=== PATIENT | female | born 1950 | race Caucasian/White ===

== ENCOUNTER 2018-08-05 13:31 | Outpatient (REF) | payer MEDICARE, SELFPAY ==
[2018-08-05 14:39] LABS: Anion Gap 12.7 mmol/L (3-11); BUN 12 mg/dL (7-18); CO2 23.3 mmol/L (21.0-32.0); CREATININE 0.67 mg/dL (0.55-1.02); Calcium 9.5 mg/dL (8.5-10.1); Chloride 107 mmol/L (98-107); Glucose 99 mg/dL (70-100); Sodium 143 mmol/L (136-145)
[2018-08-06 10:35] LABS: Hepatitis C Ab w Rflx HCV PCR Negative (NEGAT)
== END 2018-08-05 13:51 ==
LOC: NCHCN 13:31
PROVIDERS: PCP Family Medicine; Visit Provider Family Medicine
DX: I10 Essential (primary) hypertension (principal); R73.09 Other abnormal glucose; Z11.59 Encounter for screening for other viral diseases
CPT/HCPCS: 80048; 86803

== ENCOUNTER 2018-09-09 00:59 | Outpatient (CLI) | payer MEDICARE, SELFPAY ==
--- NOTE | 2018-09-09 09:16 | DI.MAMMO_ITS ---
SYMPTOMS/DIAGNOSIS: BREAST CA SCREENING, Z12.31, [facility], Z00.00 MAMMOGRAMS: Mammograms were interpreted according to the usual protocol including computer analysis with CAD system, tomosynthesis and C view imaging. Comparison is with the prior examinations. No masses or microcalcifications are seen. There is nothing to suggest malignancy. IMPRESSION: Negative mammogram. Routine screening is recommended. Category 1 , breast density B. SA ASSESSMENT OF FINDINGS: Negative. Category 1. Patient will receive a letter notifying them of these results. BI-RADS category B. There are scattered areas of fibroglandular density.
== END 2018-09-09 01:19 ==
PROVIDERS: PCP Family Medicine; Visit Provider Family Medicine
DX: Z12.31 Encounter for screening mammogram for malignant neoplasm of breast (principal)
CPT/HCPCS: 77063; 77067

== ENCOUNTER 2019-04-30 10:54 | Emergency (ER) | payer MEDICARE, SELFPAY ==
[2019-04-30 11:01] VITALS: BP 150/79; PULSE 98; RESP 16; TEMP 36.6; O2SAT 98
--- NOTE | 2019-04-30 11:06 | DI.RAD_ITS ---
SYMPTOMS/DIAGNOSIS: NOTABLE SWELLING OF LT WRIST AFTER FALL, ? FRACTURE, STERNAL CHEST PAIN LEFT WRIST: A comminuted displaced intra-articular fracture of the distal radius and ulnar styloid is demonstrated. PA AND LATERAL CHEST: There is no evidence of a pneumothorax or pleural effusion. The cardiovascular structures appear intact. SUMMARY: No evidence of acute cardiopulmonary disease.
--- NOTE | 2019-04-30 11:08 | W.ED.GENAD ---
Discharge Plan Disposition Patient Disposition: HOME Discharge Details Chief Complaint: Orthopedic Clinical Impression: Distal radial fracture, Closed fracture of radial styloid Primary Care Provider: Sinan Valles ED Provider: Moe Mchugh Home Meds and New Rx's Prescriptions: No Action losartan 50 mg tablet 50 mg PO DAILY RF: 0 amlodipine-benazepril 5-10 mg capsule 1 cap PO DAILY RF: 0 amoxicillin 500 mg capsule 500 mg PO QID RF: 0 One-A-Day Women's 50 Plus 400-20 mcg tablet PO DAILY RF: 0 black cohosh 20 mg tablet 20 mg PO BID RF: 0 Ca cmb no.1-vit Y6-I0-HX-B12 120-1,000-10 mg-unit-mg tablet PO RF: 0 flaxseed oil 1,000 mg capsule 1,000 mg PO TID RF: 0 Discharge Instructions Instructions: Wrist Fracture in Adults (ED) Additional Instructions: You have fractured the end of your radius. Take Tylenol and Motrin as needed for pain. Please keep the splint on at all times. You will be contacted by Dr. Conway's office for close follow-up. If you notice any change in color in your fingertips, change in temperature, worsening pain, loosen up the cast immediately and return for evaluation. If you notice any worsening of your symptoms, or any new symptoms such as vomiting, diarrhea, fever, chills, shortness of breath, chest pain, numbness, weakness, or fainting , please return immediately to the emergency department for reevaluation. Please follow up with your primary care provider as soon as possible for reassessment and reevaluation. As always, it was a pleasure participating in your medical care today. Referrals: Carl Conway MD [ [facility] STAFF PHYSICIAN] - Medical Decision Making This is a 68-year-old female who presents today after fall. Roughly an hour ago she fell caught herself with her left hand outstretched. She has mild deformity of the left lateral wrist, but also some swelling over the medial component as well. Concern for radial or ulnar fracture. She does have minimal chest wall tenderness, no evidence of significant vital sign abnormality, with no signs of shortness of breath, hypoxemia, or other significant abnormality. I feel the signs and symptoms are consistent with a trauma and orthopedic irritation. We will get an x-ray to rule out fracture. 1:07 PM X-ray results show evidence of comminuted intra-articular fracture of the distal radius. Questionable styloid process fracture on the distal ulna. No evidence of acute process in the chest. We did discuss the case with Dr. Conway., He does recommend close follow-up. We did give an intra-articular block, reduction was achieved, splint was placed. Post splint evaluation demonstrates brisk capillary refill, normal sensation normal movement of the hand and fingers. I have extensively reviewed the treatment plan and discharge instructions with the patient. I have addressed all patient concerns at this time. The patient was made aware of what symptoms to monitor for that would warrant a return to the emergency department. Discussed the plan with the patient, they demonstrate verbal understanding and agreement with our assessment and plan at this time. EKG 11: 11 Rate 94, sinus rhythm, intervals normal, no significant ST elevations or depressions, no significant T wave inversions. Questionable small Q waves in lead III. 15 cc of a 50-50 mixture of 1% lidocaine and 0.5% bupivacaine was placed intra-articularly for hematoma block. The area was then reduced with gentle traction. Patient tolerated this well. No bleeding. Repeat exam post reduction demonstrates normal sensation and movement of the fingers. Normal capillary refill. HPI General Date/Time Provider Initiated Documentation: 04/30/19 10:55. HPI Narrative: This is a 68-year-old female with past medical history of mild hypertension, but no history of cardiac disease, or other complaints who presents today for evaluation of left wrist pain after fall. The patient states that roughly an hour or so ago she was walking, had a mechanical trip and fell trying to catch herself with her left outstretched hand. She landed on the hand causing notable pain tenderness at the lateral aspect of the wrist. She is not on any blood thinners. She did not strike her head. Her chest also hit the ground, and immediately after the fall she did have a mild amount of sternal chest pain. Worse with movement and palpation. She denies any pain anywhere else. She denies any other modifying factors. She denies any numbness, tingling, weakness, headache, shortness of breath, fever, chills, nausea vomiting or diarrhea. Related Data Home Medications Medication Instructions Recorded Confirmed amlodipine 5 mg-benazepril 10 mg 1 cap PO DAILY 04/29/19 04/30/19 capsule amoxicillin 500 mg capsule 500 mg PO QID 04/29/19 04/30/19 black cohosh 20 mg tablet 20 mg PO BID tab 04/29/19 04/30/19 calcium cmb no.1-vit W1-F4-LZ-B12 tab PO tab 04/29/19 04/29/19 120 mg-1,000 unit-10 mg tablet flaxseed oil 1,000 mg capsule 1,000 mg PO TID 04/29/19 04/30/19 losartan 50 mg tablet 50 mg PO DAILY 04/29/19 04/30/19 nnapavadhndi-tjtcqdlr-bccynrh-folic tab PO DAILY tab 04/29/19 04/29/19 acid 400 mcg-vit K1 20 mcg tablet Allergies Allergy/AdvReac Type Severity Reaction Status Date / Time penicillin G Allergy Severe hives Verified 04/30/19 11:06 adhesive tape Allergy Intermediate rash Verified 04/30/19 11:06 General Stated Complaint: Orthopedic SHOAIB: 4 Review of Systems Review of Systems All systems reviewed & are unremarkable except as noted in HPI and below Exam Narrative Exam Narrative: 1.Const: Well-nourished, Well-developed, appearing stated age 2.Eyes: PERRL, no conjunctival injection, and symmetrical lids. 3.ENT: Atraumatic external nose and ears. Moist MM. Neck: Symmetric, trachea midline, No thyromegaly. There is no evidence of raccoon eyes, antonio sign, CSF rhinorrhea, mastoid tenderness, cranial crepitus, hemotympanum, exophthalmos, or hyphema. Patient demonstrates intact dentition with no signs of tooth avulsion or fracture, no signs of jaw deformity, no evidence of a LeFort's fracture, with an intact palate, nose and orbital region. There is no evidence of a nasal septal hematoma. No proptosis. Jaw closes symmetrically. Airway is clear. 4.CVS: Regular rate and rhythm, Normal s1 and s2. No murmurs, carotid bruits, rubs, or gallops. Radial pulses 2+ bilaterally and symmetric. Dorsalis pedis pulses 2+ bilaterally and symmetric. 2+ capillary refill. No evidence of distant heart sounds. No extremity edema. No evidence of gross hemorrhage. 5.RESP: Airway clear, no obstructions. No abrasions or ecchymosis. Chest movement symmetric with respirations. Minimal reproducible chest wall tenderness over the lower sternum. No tenderness over the xiphoid process.. Trachea midline. No crepitus. No step offs. No paradoxical movements. Lungs are clear to auscultation bilaterally. No rales, rhonchi, wheezing or stridor. Breath sound symmetric. No Sucking chest wounds. No clinical evidence of significant chest trauma. 6.GI: Soft, Nontender/Nondistended, No hepatosplenomegaly. No guarding or rebound. 7.MSK: Normocephalic. Right upper extremity unremarkable. Left upper extremity demonstrates notable tenderness, swelling and mild deformity of the left lateral wrist. Radial pulse intact bilaterally. Symmetrically palpable radial and ulnar pulses. Capillary refill less than 2 seconds to all digits. Intact sensation to light touch of the radial, median and ulnar nerves demonstrated by testing in the dorsal web space of the thumb, the distal palmar aspect of the index finger, and the lateral surface of the fifth finger. 2 point discrimination intact to 5mm (up to 6mm can be normal in digits 3-5) of discrimination in the affected digit. Intact motor function of the radial, median and ulnar nerves demonstrated by strength of extension of the isolated distal joint of the index finger, hand stock feeder, and spreading of the 2nd through 5th digits. Video Games Storywriter certainly makes pain in the wrist worse peer intact recurrent median nerve as demonstrated by ability to move thumb fully through opposition, abduction and flexion. No snuffbox tenderness. 8.Skin: Warm, Dry. No rashes or lesions. 9.Neuro: pantograph machine set up operator II-XII grossly intact. Sensation grossly intact, no focal neurologic deficits. 10.Psych: (AAO) x3. Appropriate mood and affect Course Vital Signs Temperature 36.6 C 04/30/19 11:01 Pulse 98 H 04/30/19 11:01 Respiratory Rate 16 04/30/19 11:01 Blood Pressure 150/79 H 04/30/19 11:01 Pulse Oximetry 98 04/30/19 11:01 Temperature 36.6 C 04/30/19 11:01 Temperature Source Skin 04/30/19 11:01 Pulse 98 H 04/30/19 11:01 Respiratory Rate 16 04/30/19 11:01 Respiratory Effort Non-Labored 04/30/19 11:01 Blood Pressure 150/79 H 04/30/19 11:01 Blood Pressure Position Sitting 04/30/19 11:01 Pulse Oximetry 98 04/30/19 11:01 Oxygen Delivery Method Room Air 04/30/19 11:01 Oxygen Flow Rate 0 04/30/19 11:01 Pain Level 7 04/30/19 11:01
--- NOTE | 2019-04-30 11:14 | ED.GENADUL_ITS ---
Discharge Plan Disposition Patient Disposition: HOME Discharge Details Chief Complaint: Orthopedic Clinical Impression: Distal radial fracture, Closed fracture of radial styloid Primary Care Provider: Sinan Valles ED Provider: Moe Mchugh Home Meds and New Rx's Prescriptions: No Action losartan 50 mg tablet 50 mg PO DAILY RF: 0 amlodipine-benazepril 5-10 mg capsule 1 cap PO DAILY RF: 0 amoxicillin 500 mg capsule 500 mg PO QID RF: 0 One-A-Day Women's 50 Plus 400-20 mcg tablet PO DAILY RF: 0 black cohosh 20 mg tablet 20 mg PO BID RF: 0 Ca cmb no.1-vit A0-K5-OP-B12 120-1,000-10 mg-unit-mg tablet PO RF: 0 flaxseed oil 1,000 mg capsule 1,000 mg PO TID RF: 0 Discharge Instructions Instructions: Wrist Fracture in Adults (ED) Additional Instructions: You have fractured the end of your radius. Take Tylenol and Motrin as needed for pain. Please keep the splint on at all times. You will be contacted by Dr. Conway's office for close follow-up. If you notice any change in color in your fingertips, change in temperature, worsening pain, loosen up the cast immediately and return for evaluation. If you notice any worsening of your symptoms, or any new symptoms such as vomiting, diarrhea, fever, chills, shortness of breath, chest pain, numbness, weakness, or fainting , please return immediately to the emergency department for reevaluation. Please follow up with your primary care provider as soon as possible for reassessment and reevaluation. As always, it was a pleasure participating in your medical care today. Referrals: Carl Conway MD [ [facility] STAFF PHYSICIAN] - Medical Decision Making This is a 68-year-old female who presents today after fall. Roughly an hour ago she fell caught herself with her left hand outstretched. She has mild deformity of the left lateral wrist, but also some swelling over the medial component as well. Concern for radial or ulnar fracture. She does have minimal chest wall tenderness, no evidence of significant vital sign abnormality, with no signs of shortness of breath, hypoxemia, or other significant abnormality. I feel the signs and symptoms are consistent with a trauma and orthopedic irritation. We will get an x-ray to rule out fracture. 1:07 PM X-ray results show evidence of comminuted intra-articular fracture of the distal radius. Questionable styloid process fracture on the distal ulna. No evidence of acute process in the chest. We did discuss the case with Dr. Conway., He does recommend close follow-up. We did give an intra-articular block, reduction was achieved, splint was placed. Post splint evaluation demonstrates brisk capillary refill, normal sensation normal movement of the hand and fingers. I have extensively reviewed the treatment plan and discharge instructions with the patient. I have addressed all patient concerns at this time. The patient was made aware of what symptoms to monitor for that would warrant a return to the emergency department. Discussed the plan with the patient, they demonstrate verbal understanding and agreement with our assessment and plan at this time. EKG 11: 11 Rate 94, sinus rhythm, intervals normal, no significant ST elevations or depressions, no significant T wave inversions. Questionable small Q waves in lead III. 15 cc of a 50-50 mixture of 1% lidocaine and 0.5% bupivacaine was placed intra- articularly for hematoma block. The area was then reduced with gentle traction. Patient tolerated this well. No bleeding. Repeat exam post reduction demonstrates normal sensation and movement of the fingers. Normal capillary refill. HPI General Date/Time Provider Initiated Documentation: 04/30/19 10:55 . HPI Narrative: This is a 68-year-old female with past medical history of mild hypertension, but no history of cardiac disease, or other complaints who presents today for evaluation of left wrist pain after fall. The patient states that roughly an hour or so ago she was walking, had a mechanical trip and fell trying to catch herself with her left outstretched hand. She landed on the hand causing notable pain tenderness at the lateral aspect of the wrist. She is not on any blood thinners. She did not strike her head. Her chest also hit the ground, and immediately after the fall she did have a mild amount of sternal chest pain. Worse with movement and palpation. She denies any pain anywhere else. She denies any other modifying factors. She denies any numbness, tingling, weakness, headache, shortness of breath, fever, chills, nausea vomiting or diarrhea. Related Data Home Medications Medication Instructions Recorded Confirmed amlodipine 5 mg-benazepril 10 mg 1 cap PO DAILY 04/29/19 04/30/19 capsule amoxicillin 500 mg capsule 500 mg PO QID 04/29/19 04/30/19 black cohosh 20 mg tablet 20 mg PO BID tab 04/29/19 04/30/19 calcium cmb no.1-vit E9-Q9-GL-B12 tab PO tab 04/29/19 04/29/19 120 mg-1,000 unit-10 mg tablet flaxseed oil 1,000 mg capsule 1,000 mg PO TID 04/29/19 04/30/19 losartan 50 mg tablet 50 mg PO DAILY 04/29/19 04/30/19 ywdrezxdsawx-bctqwqtb-wqmgurs-folic tab PO DAILY tab 04/29/19 04/29/19 acid 400 mcg-vit K1 20 mcg tablet Allergies Allergy/AdvReac Type Severity Reaction Status Date / Time penicillin G Allergy Severe hives Verified 04/30/19 11:06 adhesive tape Allergy Intermediate rash Verified 04/30/19 11:06 General Stated Complaint: Orthopedic SHOAIB: 4 Review of Systems Review of Systems All systems reviewed & are unremarkable except as noted in HPI and below Exam Narrative Exam Narrative: 1.Const: Well-nourished, Well-developed, appearing stated age 2.Eyes: PERRL, no conjunctival injection, and symmetrical lids. 3.ENT: Atraumatic external nose and ears. Moist MM. Neck: Symmetric, trachea midline, No thyromegaly. There is no evidence of raccoon eyes, antonio sign, CSF rhinorrhea, mastoid tenderness, cranial crepitus, hemotympanum, exophthalmos, or hyphema. Patient demonstrates intact dentition with no signs of tooth avulsion or fracture, no signs of jaw deformity, no evidence of a LeFort's fracture, with an intact palate, nose and orbital region. There is no evidence of a nasal septal hematoma. No proptosis. Jaw closes symmetrically. Airway is clear. 4.CVS: Regular rate and rhythm, Normal s1 and s2. No murmurs, carotid bruits, rubs, or gallops. Radial pulses 2+ bilaterally and symmetric. Dorsalis pedis pulses 2+ bilaterally and symmetric. 2+ capillary refill. No evidence of distant heart sounds. No extremity edema. No evidence of gross hemorrhage. 5.RESP: Airway clear, no obstructions. No abrasions or ecchymosis. Chest movement symmetric with respirations. Minimal reproducible chest wall tenderness over the lower sternum. No tenderness over the xiphoid process.. Trachea midline. No crepitus. No step offs. No paradoxical movements. Lungs are clear to auscultation bilaterally. No rales, rhonchi, wheezing or stridor. Breath sound symmetric. No Sucking chest wounds. No clinical evidence of significant chest trauma. 6.GI: Soft, Nontender/Nondistended, No hepatosplenomegaly. No guarding or rebound. 7.MSK: Normocephalic. Right upper extremity unremarkable. Left upper extremity demonstrates notable tenderness, swelling and mild deformity of the left lateral wrist. Radial pulse intact bilaterally. Symmetrically palpable radial and ulnar pulses. Capillary refill less than 2 seconds to all digits. Intact sensation to light touch of the radial, median and ulnar nerves demonstrated by testing in the dorsal web space of the thumb, the distal palmar aspect of the index finger, and the lateral surface of the fifth finger. 2 point discrimination intact to 5mm (up to 6mm can be normal in digits 3-5) of discrimination in the affected digit. Intact motor function of the radial, median and ulnar nerves demonstrated by strength of extension of the isolated distal joint of the index finger, hand regulatory agency director, and spreading of the 2nd through 5th digits. Prospecting Driller certainly makes pain in the wrist worse peer intact recurrent median nerve as demonstrated by ability to move thumb fully through opposition, abduction and flexion. No snuffbox tenderness. 8.Skin: Warm, Dry. No rashes or lesions. 9.Neuro: dental laboratory manager II-XII grossly intact. Sensation grossly intact, no focal neurologic deficits. 10.Psych: (AAO) x3. Appropriate mood and affect Course Vital Signs Temperature 36.6 C 04/30/19 11:01 Pulse 98 H 04/30/19 11:01 Respiratory Rate 16 04/30/19 11:01 Blood Pressure 150/79 H 04/30/19 11:01 Pulse Oximetry 98 04/30/19 11:01 Temperature 36.6 C 04/30/19 11:01 Temperature Source Skin 04/30/19 11:01 Pulse 98 H 04/30/19 11:01 Respiratory Rate 16 04/30/19 11:01 Respiratory Effort Non-Labored 04/30/19 11:01 Blood Pressure 150/79 H 04/30/19 11:01 Blood Pressure Position Sitting 04/30/19 11:01 Pulse Oximetry 98 04/30/19 11:01 Oxygen Delivery Method Room Air 04/30/19 11:01 Oxygen Flow Rate 0 04/30/19 11:01 Pain Level 7 04/30/19 11:01
--- NOTE | 2019-04-30 13:28 | NUR.NOTE ---
patient received discharge and follow up instruction per MD order. Nursing Note:
== END 2019-04-30 13:29 | disposition home or self-care (01) ==
PROVIDERS: Emergency Provider Student in an Organized Health Care Education/Training Program; PCP Family Medicine
DX: S52.572A Other intraarticular fracture of lower end of left radius, initial encounter for closed fracture (principal); S52.512A Displaced fracture of left radial styloid process, initial encounter for closed fracture; R07.82 Intercostal pain; W01.0XXA Fall on same level from slipping, tripping and stumbling without subsequent striking against object, initial encounter; I10 Essential (primary) hypertension
CPT/HCPCS: 25600; 93005; 71046; 73110; 93010; L3650

== ENCOUNTER 2019-05-07 09:41 | Outpatient (CLI) | payer MEDICARE, SELFPAY ==
--- NOTE | 2019-05-07 08:14 | DI.RAD_ITS ---
SYMPTOMS/DIAGNOSIS: F/U LEFT DISTAL RADIUS FX LEFT WRIST: Three views were obtained and show markedly comminuted, markedly displaced fracture of the distal radius with associated ulnar styloid fracture. The wrist is in a splint. On the AP view, there is a question of increased displacement of distal radial fracture fragments at the articular surface in comparison with the previous examination of April 30.
== END 2019-05-07 10:01 ==
PROVIDERS: PCP Family Medicine; Referring Provider Family Medicine; Visit Provider Student in an Organized Health Care Education/Training Program
DX: S52.572A Other intraarticular fracture of lower end of left radius, initial encounter for closed fracture (principal); W19.XXXA Unspecified fall, initial encounter; I10 Essential (primary) hypertension
CPT/HCPCS: 99203; 99213; 73110

== ENCOUNTER 2019-05-15 12:18 | Day surgery (SDC) | payer MEDICARE, SELFPAY ==
[2019-05-15 12:41] VITALS: BP 142/86; PULSE 95; RESP 18; TEMP 36.8; O2SAT 98
[2019-05-15] MEDS: Lactated Ringers 1,000 ML 80 ML IV ×2 (13:28→15:29)
[2019-05-15] MEDS: Bupivacaine LIPOSOME/PF 133 MG/10 ML VIAL IJ (13:31)
[2019-05-15] MEDS: Bupivacaine 0.5% Pres-Free 30 ML VIAL ×2 (13:31→14:18)
--- NOTE | 2019-05-15 14:03 | W.PM.DSUDISC ---
Discharge Plan Disposition Patient Disposition: HOME Condition: Good Discharge Details Reason For Visit: Left Distal Radius Fracture Attending Provider: Carl Conway Primary Care Provider: Sinan Valles Home Meds and New Rx's Prescriptions: New hydrocodone-acetaminophen 5-325 mg tablet 1 tab PO Q4H PRN (Reason: pain) Qty: 10 RF: 0 acetaminophen 500 mg tablet 500 mg PO Q6H PRN PRN (Reason: pain) Qty: 60 RF: 3 ibuprofen 600 mg tablet 600 mg PO TID PRNQty: 60 RF: 3 Continued losartan 50 mg tablet 50 mg PO DAILY RF: 0 amlodipine-benazepril 5-10 mg capsule 1 cap PO DAILY RF: 0 amoxicillin 500 mg capsule 500 mg PO QID RF: 0 One-A-Day Women's 50 Plus 400-20 mcg tablet 1 tab PO DAILY RF: 0 Ca cmb no.1-vit Q6-C7-YG-B12 120-1,000-10 mg-unit-mg tablet 1 tab PO DAILY RF: 0 flaxseed oil 1,000 mg capsule 1,000 mg PO TID RF: 0 Discharge Instructions Additional Instructions: Wrist Fracture Fixation Discharge Instructions Activity: You should keep the hand/wrist elevated as much as possible for the first few days. You may use the other fingers as tolerated but avoid trying to do too much too soon. You may perform light activities with the splint in place. Dressing/Cast: Your splint should stay in place at all times. Do NOT get it wet. You may loosen the DIMPLE wrap if you feel it is too tight and then rewrap more loosely. Medications: - You should take Tylenol and Ibuprofen for baseline pain control. - You have been prescribed a stronger pain medication, Hydrocodone, for breakthrough pain. - You may apply ice over the wrist, just double bag so it doesn't get wet. Follow-up: 10-14 days Referrals: Carl Conway MD [ [facility] STAFF PHYSICIAN] - Equipment/Supplies: Splint Activity:: Elevate Remove Dressings/Wound Care:: Do Not Remove Shower/Bathe:: Cover Diet:: As Tolerated Discharge Orders Discharge Orders: Discharge Order (Routine); Ordered 05/15/19 Ordered By: Carl Conway DS: Diagnosis Discharge Diagnosis (1) Fracture of left distal radius: Status: Acute
[2019-05-15] MEDS: ceFAZolin 2 GM/50 ML BAG IVPB (14:10)
--- NOTE | 2019-05-15 16:02 | DI.RAD_ITS ---
SYMPTOM/DIAGNOSIS: FRACTURE LEFT WRIST IN O.R. Fluoroscopy Time: 1 min10 Fluoroscopy was utilized by Dr. Conway during the open reduction, internal fixation of the distal left radial fracture. Alignment appears anatomic. The ulnar styloid process fracture is stable. Please refer to the procedure report for complete details.
[2019-05-15 16:16] VITALS: BP 126/78; PULSE 66; RESP 16; TEMP 36.6; O2SAT 92
--- NOTE | 2019-05-15 21:02 | ROE_ITS ---
Date of service: 05/15/19 Time of Service: 17:02 Operative Note DATE OF PROCEDURE: 05/15/19 PRE-OP DIAGNOSIS: Left Distal Radius and Ulna Fracture POST-OP DIAGNOSIS: same PROCEDURE: Open Reduction and Internal Fixation of Left Distal Radius SURGEON: Carl Conway SOCIAL MEDIA CAMPAIGN MANAGER: Omar Lee ANESTHESIA: GETA and regional ESTIMATED BLOOD LOSS: 10 PATHOLOGY: none sent COMPLICATIONS: None Patient was transported to: PACU Patient's condition: stable Indications: Mary is a 68-year-old female who I have seen for a left distal radius fracture. Given the deformity, displacement, fracture pattern, and effect on daily function, I recommended surgical fixation. I reviewed the risk of the procedure to include bleeding, infection co-pay, stiffness, damage to nerves and vessels, damage to muscles and tendons, malunion, nonunion, hardware prominence, tendon rupture, need for repeat procedures. Despite these risks, the patient elected to proceed. Findings: There is a distal radius fracture which had 3 primary parts which were intra-articular. It was reduced and fixed with a Synthes volar locking plate. Procedure Description: Mary was greeted in the preoperative holding area. The correct patient and site was confirmed and marked. The history and physical was updated. The consent was reviewed the patient and signed. The patient was taken to the PACU for administration of regional anesthetic, supraclavicular block. The patient was taken to the operating room and placed in the supine position. All bony problems were well-padded. The left arm was placed onto a radiolucent hand table. A nonsterile tourniquet was placed high up on the left arm. Prophylactic antibiotics in the form of cefazolin were administered. The left arm was prepped with ChloraPrep and draped in a standard fashion. A timeout was performed for safe surgery. A standard longitudinal incision was made overlying the flexor carpi radialis tendon starting at the distal wrist crease and moving proximally. The skin was incised sharply. The flexor carpi radialis tendon and its sheath is identified. The sheath was opened. The tendon was moved ulnarly in the floor of the sheath was incised. Blunt dissection the flexor pollicis longus muscle belly and tendon were also made radially exposing the pronator quadratus and the distal radius. The printer quadratus was elevated with an ulnar-based flap. This exposed the volar distal radius and the fracture.Given the fracture pattern and radial styloid involvement, the brachioradialis was released. A chavira elevator was used for full exposure of the volar surface of the distal radius. The primary fracture line was exposed. Using a series of elevators, curettes, and knife, the fracture was fully debrided of any fibrous tissue and callus formation. I used a freer elevator to help mobilize the fragments. There were three primary fracutre parts with intraarticular extension. Radiographically the styloid looked to be fractured but this moved as one unit. I then performed a closed reduction. Using gentle traction and fracture manipulation, this reduction was held. Fluoroscopic images were used to confirm adequate reduction. An appropriately sized Synthes volar locking plate was then placed onto the bony surface of the distal radius. Was then held there with a distal radius clamp sandwiching the plate to the distal segment. A single K wire was placed through the distal end. Fluoroscopy was once again used to confirm appropriate positioning of the plate on the distal radius. A reduction K wire was placed into the slotted hole on the shaft but not tightened all the way to allow for manipulation of the distal segment onto the proximal shaft. A single nonlocking screw was placed to the distal portion of the plate securing the plate against the bone of the distal radial metaphysis. Once again, the pl ate was evaluated to make sure it was aligned appropriately. The single screw was also checked to make sure it was in appropriate positioning for trajectory of future screws. The remainder of the screws within the volar locking plate were filled with locking screws. These were made sure not to penetrate the dorsal cortex. Once these were applied the proximal portion of the plate was further reduced down onto the shaft, which further reduce the distal segment. This was held in position with a tightened reduction K wire. Fluoroscopy was then used against confirm appropriate reduction. Nonlocking screws were placed within the 3 shaft screw holes. Final x-rays were obtained which demonstrated adequate reduction and positioning of hardware. The dorsal sunrise view was also obtained to ensure correct sizing of screws. The wound was then thoroughly irrigated. The pronator quadratus was reapproximated with a 0 Vicryl. The tourniquet was released and there was no notable vascular injury. The fingers were warm and well-perfused. The deep dermal layer was closed with a 2-0 Vicryl. The skin was closed with 4-0 nylon. The wound was dressed with Xeroform, 4 x 4's, web roll. A short arm splint was applied. At the end the case all counts are correct. Patient was transferred back to the PACU in stable condition.
== END 2019-05-15 17:03 | disposition home or self-care (01) ==
PROVIDERS: PCP Family Medicine; Visit Provider Student in an Organized Health Care Education/Training Program
PROC: (CPT 25609; principal; 2019-05-15 14:15)
DX: S52.572A Other intraarticular fracture of lower end of left radius, initial encounter for closed fracture (principal); S52.612A Displaced fracture of left ulna styloid process, initial encounter for closed fracture; G89.18 Other acute postprocedural pain; W19.XXXA Unspecified fall, initial encounter; I10 Essential (primary) hypertension
CPT/HCPCS: 25609; C1713; 76942; 73100; J0690; J1100; J2250; J2405; J3010; L3650

== ENCOUNTER 2019-06-02 12:40 | Outpatient (CLI) | payer MEDICARE, SELFPAY ==
--- NOTE | 2019-06-02 08:41 | DI.RAD_ITS ---
SYMPTOM/DIAGNOSIS: POST OP LEFT WRIST: Comparison is made with intraoperative images of 05/15/19. The volar fixation plate is again noted along the distal radius for fracture fixation. There has been no change in fracture alignment.
== END 2019-06-02 13:00 ==
PROVIDERS: PCP Family Medicine; Referring Provider Family Medicine; Visit Provider Student in an Organized Health Care Education/Training Program
DX: S52.572A Other intraarticular fracture of lower end of left radius, initial encounter for closed fracture; X58.XXXA Exposure to other specified factors, initial encounter; I10 Essential (primary) hypertension
CPT/HCPCS: 73110; L3908

== ENCOUNTER 2019-07-07 09:29 | Outpatient (CLI) | payer MEDICARE, SELFPAY ==
--- NOTE | 2019-07-07 09:21 | DI.RAD_ITS ---
SYMPTOM/DIAGNOSIS: F/U FRACTURE LEFT WRIST: 07/07 Three views were obtained and again show previously described fracture of the distal radius with associated ulnar styloid fracture. No gross interval change in alignment of fracture fragments and fixation device in comparison with examination of June 02
== END 2019-07-07 09:49 ==
PROVIDERS: PCP Family Medicine; Referring Provider Family Medicine; Visit Provider Student in an Organized Health Care Education/Training Program
DX: S52.512A Displaced fracture of left radial styloid process, initial encounter for closed fracture (principal); S52.612A Displaced fracture of left ulna styloid process, initial encounter for closed fracture; X58.XXXA Exposure to other specified factors, initial encounter; I10 Essential (primary) hypertension
CPT/HCPCS: 73110

== ENCOUNTER 2019-08-15 11:10 | Outpatient (CLI) | payer MEDICARE, SELFPAY ==
[2019-08-15 12:56] LABS: ALT 26 U/L (14-59); AST 23 U/L (15-37); Albumin 4.1 g/dL (3.4-5.0); Alkaline Phosphatase 99 U/L (46-116); Anion Gap 13.9 mmol/L (3-11); BUN 14 mg/dL (7-18); Bilirubin, Total 0.5 mg/dL (0.2-1.0); CO2 24.1 mmol/L (21.0-32.0); CREATININE 0.71 mg/dL (0.55-1.02); Calcium 9.5 mg/dL (8.5-10.1); Chloride 106 mmol/L (98-107); Glucose 93 mg/dL (70-100); Potassium 3.9 mmol/L (3.5-5.1); Sodium 144 mmol/L (136-145); Total Protein 7.4 g/dL (6.4-8.2)
== END 2019-08-15 11:30 ==
PROVIDERS: PCP Family Medicine; Visit Provider Family Medicine
DX: I10 Essential (primary) hypertension (principal); R73.09 Other abnormal glucose; E66.9 Obesity, unspecified; E55.9 Vitamin D deficiency, unspecified
CPT/HCPCS: 36415; 80053; 82306

== ENCOUNTER 2019-09-08 10:42 | Outpatient (CLI) | payer MEDICARE, SELFPAY ==
--- NOTE | 2019-09-08 09:39 | DI.RAD_ITS ---
EXAM: XR WRIST LT COMPLETE INDICATION: f/u ORIF of left wrist. COMPARISON: XR WRIST LT COMPLETE from 04/30/2019 XR WRIST LT COMPLETE from 05/07/2019 XR WRIST LT COMPLETE from 06/02/2019 XR WRIST LT COMPLETE from 07/07/2019 TECHNIQUE: 2D digital imaging was performed. FINDINGS: There has been no change in alignment of the ulnar styloid process fracture. There has been no change in alignment of the fracture involving the distal radius or the orthopedic h ardware transfixing the fracture. There does appear to be a lucency and possible fragmentation of the proximal portion of the lunate. This may represent an acute fracture but lunatomalacia cannot be excluded. If further imaging is war ranted, a CT scan may be considered. There are degenerative changes seen in the wrist, particularly at the 1st carpometacarpal joint. No radiopaque foreign bodies are seen in the soft tissues.
== END 2019-09-08 11:02 ==
PROVIDERS: PCP Family Medicine; Visit Provider Physician Assistant
DX: S52.512D Displaced fracture of left radial styloid process, subsequent encounter for closed fracture with routine healing (principal); S52.612D Displaced fracture of left ulna styloid process, subsequent encounter for closed fracture with routine healing; M19.042 Primary osteoarthritis, left hand; X58.XXXD Exposure to other specified factors, subsequent encounter
CPT/HCPCS: 99213; 73110

== ENCOUNTER 2020-08-17 12:12 | Outpatient (REF) | payer MEDICARE, SELFPAY ==
[2020-08-17 18:53] LABS: Anion Gap 10.9 mmol/L (3-11); BUN 16 mg/dL (7-18); CO2 25.1 mmol/L (21.0-32.0); CREATININE 0.76 mg/dL (0.55-1.02); Chloride 104 mmol/L (98-107); Glucose 93 mg/dL (74-106); Sodium 140 mmol/L (136-145)
== END 2020-08-17 12:32 ==
LOC: NCHCN 12:12
PROVIDERS: PCP Family Medicine; Visit Provider Family Medicine
DX: I10 Essential (primary) hypertension (principal)
CPT/HCPCS: 80048

== ENCOUNTER 2020-09-07 01:05 | Outpatient (CLI) | payer MEDICARE, SELFPAY ==
--- NOTE | 2020-09-07 12:52 | DI.MAMMO_ITS ---
EXAM: MG MAMMO SCREENING CLINICAL HISTORY: SCREENING, [facility],Z00.00 TECHNIQUE: Bilateral full field digital CC and MLO mammographic images were obtained with 3D tomosyn thesis and utilizing computer aided detection (CAD). COMPARISON: Available for comparison. FINDINGS: Masses/Architectural Distortion: Increased prominence of an area of asymmetric density in the outer r ight breast on the CC view. Microcalcifications: No suspicious pleomorphic-type are seen. Skin Thickening/Nipple Retraction: None. IMPRESSION: 1. Asymmetric density in the outer right breast on the CC view. 2. Additional views of the right breast are requested. Ultrasound may be indicated at that time. BI-RADS Category 0 - Assessment Incomplete: Need additional imaging evaluation Breast Density - Category B - Scattered areas of fibroglandular density A negative radiographic report should not delay biopsy if a dominant or clinically suspicious mass is present. Up to ten percent of cancers are not identified on mammography. A negative report may reinforce clinical impression. Adenosis and dense breasts may obscure an underlying neoplasm. False positive reports average 6 to 10%. Patient will receive a letter notifying them of these results.
== END 2020-09-07 01:25 ==
PROVIDERS: PCP Family Medicine; Visit Provider Family Medicine
DX: Z12.31 Encounter for screening mammogram for malignant neoplasm of breast (principal); R92.8 Other abnormal and inconclusive findings on diagnostic imaging of breast
CPT/HCPCS: 77063; 77067

== ENCOUNTER 2020-09-10 03:26 | Outpatient (CLI) | payer MEDICARE, SELFPAY ==
--- NOTE | 2020-09-10 | DI.US_ITS ---
EXAM: MG MAMMO SCREEN CALL BACK UNI and U/S breast RT limited CLINICAL HISTORY: F/U MAMMO, INCREASED ASYMMETRIC DENSITY OUTER RT BREAST ON CC VIEW. TECHNIQUE: Craniocaudal and mediolateral oblique Full Field Digital Mammography views of the right b reast with Computer Aided Diagnosis followed by Tomosynthesis and right breast ultrasound. COMPARISON: Priors available for comparison. FINDINGS: Mammography/Tomosynthesis: Masses/Architectural Distortion: None seen. Microcalcifictions: No suspicious pleomorphic-type are seen. Skin Thickening/Nipple Retraction: None. Right breast US: Echotexture: Normal appearance of the glandular tissue. Shadowing: No suspicious foci. Cyst: None. Solid lesions: None seen. Ductal dilation: None. IMPRESSION: 1. No evidence of malignancy is noted. 2. Unless there is more urgent need, follow-up screening mammography is recommended, as per [place] [employer] guidelines. 3. The findings were discussed with the patient on the date of the examination. BI-RADS Category 1 - Negative Breast Density - Category B - Scattered areas of fibroglandular density A negative radiographic report should not delay biopsy if a dominant or clinically suspicious mass is present. Up to ten percent of cancers are not identified on mammography. A negative report may reinforce clinical impression. Adenosis and dense breasts may obscure an underlying neoplasm. False positive reports average 6 to 10%. Patient will receive a letter notifying them of these results.
== END 2020-09-10 03:46 ==
PROVIDERS: PCP Family Medicine; Visit Provider Family Medicine
DX: R92.8 Other abnormal and inconclusive findings on diagnostic imaging of breast (principal)
CPT/HCPCS: 76642; 77063; 77067

== ENCOUNTER → 2021-09-19 08:53 | Outpatient (BNVA) | payer MEDICARE, SELFPAY | PROVIDERS: PCP Family Medicine; Referring Provider Family Medicine; Visit Provider Surgery | DX: R19.5 Other fecal abnormalities (principal); R10.13 Epigastric pain; Z80.0 Family history of malignant neoplasm of digestive organs; Z87.891 Personal history of nicotine dependence; Z86.79 Personal history of other diseases of the circulatory system; Z87.42 Personal history of other diseases of the female genital tract; E78.5 Hyperlipidemia, unspecified; I10 Essential (primary) hypertension; R63.4 Abnormal weight loss | CPT/HCPCS: 99213 ==

== ENCOUNTER 2021-09-26 02:28 | Outpatient (CLI) | payer MEDICARE, SELFPAY ==
[2021-09-26 09:04] LABS: Abs Immature Grans 0.03 10^3/uL (0.0-0.06); Absolute Basophil Count 0.05 10^3/uL (0.0-0.2); Absolute Eosinophil Count 0.21 10^3/uL (0.0-0.7); Absolute Lymphocyte Count 2.28 10^3/uL (1.2-3.4); Absolute Monocyte Count 0.82 10^3/uL (0.1-0.8); Absolute Neutrophil Count 5.09 10^3/uL (1.2-6.7); Basophils % 0.6; Eosinophils % 2.5; HCT 38.8 % (36.0-46.0); HGB 13.1 g/dL (11.2-15.7); Immature Grans % 0.4; Lymphocytes % 26.9; MCH 29.7 pg (27.0-33.0); MCHC 33.8 % (32.0-36.0); MPV 9.7 fL (8.0-11.0); Monocytes % 9.7; Neutrophils % 59.9; Nucleated RBC 0 %; Platelet Count 383 10^3/uL (130-400); RBC 4.41 10^6/uL (3.93-5.22); RDW 13.8 % (11.7-14.6); RDW-SD 44.9 fL; WBC 8.48 10^3/uL (4.4-10.8)
[2021-09-26 10:16] LABS: ALT 27 U/L (14-59); AST 24 U/L (15-37); Albumin 3.9 g/dL (3.4-5.0); Alkaline Phosphatase 83 U/L (46-116); Anion Gap 13.3 mmol/L (3-11); BUN 14 mg/dL (7-18); Bilirubin, Total 0.5 mg/dL (0.2-1.0); CO2 21.7 mmol/L (21.0-32.0); CREATININE 0.9 mg/dL (0.55-1.02); Chloride 104 mmol/L (98-107); Glucose 131 mg/dL (74-106); Sodium 139 mmol/L (136-145)
== END 2021-09-26 02:29 | disposition home or self-care (01) ==
LOC: LBO 02:29
PROVIDERS: PCP Family Medicine; Visit Provider Surgery
DX: I10 Essential (primary) hypertension; R63.4 Abnormal weight loss; E78.5 Hyperlipidemia, unspecified; R73.03 Prediabetes
CPT/HCPCS: 36415; 80053; 85025

== ENCOUNTER 2021-10-05 01:54 | Outpatient (CLI) | payer MEDICARE, SELFPAY ==
[2021-10-05 11:50] LABS: Source Nasal/Nares
[2021-10-05 14:06] LABS: COVID-19 PCR Negative (Negative)
== END 2021-10-05 01:55 | disposition home or self-care (01) ==
LOC: LBO 01:55
PROVIDERS: PCP Family Medicine; Visit Provider Surgery
DX: Z20.822 Contact with and (suspected) exposure to COVID-19 (principal)
CPT/HCPCS: 87635

== ENCOUNTER 2021-10-07 09:00 | Day surgery (SDC) | payer MEDICARE, SELFPAY ==
--- NOTE | 2021-10-06 21:23 | W.PM.ENDDOP ---
Date of service: 10/07/21 Endoscopy Report DATE OF PROCEDURE: 10/07/21 PRE-OP DIAGNOSIS: epigastric pain/early satiety POST-OP DIAGNOSIS: other (gastritis/gastric ulcer/large hiatal hernia) SURGEON: Kacey Box ANESTHESIA TYPE: General:No Airway ESTIMATED BLOOD LOSS: 1 PATHOLOGY: other COMPLICATIONS: None DISPOSITION: same day PROCEDURE DESCRIPTION: After informed consent was obtained the patient was take to the procedure room and placed in a supine position. Monitors were applied and a time out was done. The patients name, date of , procedure type, allergies to medications and metal in their body was reviewed. A bite block was placed and the patient was sedated. Once sedated and comfortable the gastroscope was advanced through the oropharynx which was grossly normal into the esophagus. The proximal and mid-esophagus were nl In the distal esophagus there is a large hiatal hernia- the upper 1/3 of the stomach is in the chest. The scope was advanced into the stomach and through the pylorus into the 3rd portion of the duodenum. She has a 3mm ulcer in the posterior duodenum w/ surrounding gastritis. It has a white eschar on it w/ no active bleeding. The duodenum was noted moderate duodenitis. Biopsies were done were done- all specimens are retrieved and no bleeding noted. The scope was retracted back into the stomach and biopsies were done to rule out H. pylori. The scope was retroflexed. The cardia and fundus were noted to be normal. There lg hiatal hernia noted. The scope was retracted back into the esophagus and biopsies were done of the GE junction to rule out Licona's. The Z line was irregular. The scope was removed and the patient was woken up and taken back to [facility] in stable condition. Follow up: 2 wks for hgb repeat and bx review
--- NOTE | 2021-10-06 21:24 | W.COLOREPORT ---
Colonoscopy Report Date of procedure: 10/07/21 Pre-op diagnosis general: iFIT+ Post-op diagnosis procedure note: other (diverticula & polyp) Surgeon: Kacey Box Anesthesia Type: General:No Airway Estimated blood loss (mL): 1 Complications: None Disposition: same day Prep: Miralax/Dulcolax Retraction Time: 8 Procedure Description: pt is an extremely difficult IV start. After informed consent was obtained the patient was taken to the procedure room and placed in a left decubitous position. Monitors were applied and a time out was done. The patients name, date of , procedure, allergies to medications and metal in their body was reviewed. The patient was then sedated. Once sedated and comfortable a rectal exam was done. External exam was normal. Internal exam revealed a normal sphincter tone and no palpable masses. The scope was then introduced and retrofelexed. No inernal hemorrhoids were identified. The scope was then advanced to the cecum w/out difficulty. The TI and appendiceal orifice were identified. The prep was good. The scope was then slowly retracted over 8 minutes back into the rectum. A 5mm, flat polyp was removed at 30cm w/ cold Bx forcept. She does have moderate diveticula that extend all the way to the right colon. The scope was removed and the patient was woken up and taken back to Same day surgery in stable condition. The patient tolerated the procedure well and there were no immediate complications. Follow up: The patient should follow up in 5 years, if she is still heathy for anesthesia, unless they develop changes in bowel habits or other new gastrointestinal complaints.
--- NOTE | 2021-10-06 21:26 | PDOC.DSDIS_ITS ---
Discharge Plan Disposition Patient Disposition: HOME Condition: Good Discharge Details Reason For Visit: stomach and col Attending Provider: Kacey Box Primary Care Provider: Sinan Valles Home Meds and New Rx's Prescriptions: New pantoprazole [Protonix] 40 mg tablet,delayed release (DR/EC) 40 mg PO DAILY Qty: 90 RF: 4 sucralfate [Carafate] 1 gram tablet 1 g PO QACHS Qty: 120 RF: 6 Continued losartan 50 mg tablet 50 mg PO DAILY RF: 0 amoxicillin 500 mg capsule 500 mg PO QID RF: 0 One-A-Day Women's 50 Plus 400-20 mcg tablet 1 tab PO DAILY RF: 0 Ca cmb no.1-vit [id number]-B12 120-1,000-10 mg-unit-mg tablet 1 tab PO DAILY RF: 0 flaxseed oil 1,000 mg capsule 1,000 mg PO TID RF: 0 cholecalciferol (vitamin D3) 50 mcg (2,000 unit) capsule 50 mcg PO DAILY RF: 0 amlodipine 10 mg tablet 10 mg PO DAILY RF: 0 acetaminophen 500 mg tablet 500 mg PO Q6H PRN PRN (Reason: pain) Qty: 60 RF: 3 Discontinued polyethylene glycol 3350 17 gram/dose powder 238 g PO ONCE Qty: 238 RF: 0 bisacodyl [Dulcolax (bisacodyl)] 5 mg tablet,delayed release (DR/EC) 5 mg PO ONCE Qty: 4 RF: 0 ibuprofen 600 mg tablet 600 mg PO TID PRNQty: 60 RF: 3 Discharge Instructions Additional Instructions: DSU Colonoscopy Post- Op Instructions Instructions for Everyone who is given Anesthesia: For your safety, please do the following for the next twenty-four (24) hours: *Do Not operate a motor vehicle (car, truck, motorcycle, etc.) *Do Not drink alcoholic beverages or use any recreational drugs for the first 24 hours or while taking pain medications. The medications in your body may have a reaction that can be dangerous. *Do Not make any important decisions or sign any important papers. Findings: bleeding stomach ulcer protonix daily carafate ac/hs NO ASA/NSAID's Continue with lifestyle modifications: no alcohol, tobacco products, Aspirin or NSAID's (ibuprofen, Motrin, Naprosyn, aleve, etc), soda pop/any carbonated beverages, caffeine (including tea & chocolate), and acidic foods, (tomatoes, citrus, onions, peppermints) spicy or fried/fatty foods. Do not lie down for 30 minutes after eating, and do not eat 2 hours prior to bedtime. Avoid wearing tight fitting clothing/ belts Follow up: 2 weeks w/ Dr. Box 1. No lifting over 20 pounds or strenuous activity for the first 24 hours after your procedure. After 24 hours there are no restrictions on your activity but you may feel fatigued for a few days. 2. After you arrive home you may have a light meal and return to your normal diet as you can tolerate it without feeling sick to your stomach. 3. You may have a bloated, gaseous feeling in your belly (abdomen) after a colonoscopy. Passing gas and belching will help. Walking or lying down on your left side with your knees flexed may relieve the discomfort. Call the office at [phone] (Office) or [phone] (Hospital) right away if you notice any of the following: a.Vomiting of blood or ?coffee ground stools?. b.Rectal bleeding 1Tbsp, blood clots or continuous bleeding. c.Severe belly (abdominal) pain. d.A hard distended belly (abdomen) and an inability to pass gas. 4. Please don?t expect to have a normal BM (bowel movement) for 2-3 days after your procedure. 5. If there are questions regarding the findings of your procedure, please contact your doctor 6. If you are unable to contact your doctor with a problem, contact the hospital at [phone]. 7. Continue all your regular medications unless directed otherwise. I understand the above instructions and have no questions. Signature of Patient or Adult Escort Name of Responsible Adult Escort Signature of Nurse Date/Time Activity:: see above Diet:: see above Discharge Orders Discharge Orders: Discharge Order (Routine); Ordered 10/06/21 Ordered By: Kacey Box DS: Diagnosis Discharge Diagnosis (1) Bleeding gastric ulcer: Status: Acute
[2021-10-07 09:26] VITALS: PULSE 77; RESP 16; TEMP 36.3; O2SAT 99
--- NOTE | 2021-10-07 09:34 | ANES.PREOP_ITS ---
General Info Date of Service Date Performed: 10/07/21 Height: 5 ft Weight: 86.5 kg Body Mass Index (BMI): 37.2 Surgical Procedure: Operation Date: 10/07/21 09:50 Proposed Procedures Side Surgeon p Colonoscopy/Gastroscopy Kacey Box, DO Meds Allergies and Home Medications Allergies Allergy/AdvReac Type Severity Reaction Status Date / Time penicillin G Allergy Severe hives Verified 10/07/21 09:32 adhesive tape Allergy Intermediate rash Verified 10/07/21 09:32 Home Medication Medication Instructions Recorded amoxicillin 500 mg capsule 500 mg PO QID 04/29/19 calcium cmb no.1-vit O1-E3-PP-B12 1 tab PO DAILY tab 04/29/19 120 mg-1,000 unit-10 mg tablet flaxseed oil 1,000 mg capsule 1,000 mg PO TID 04/29/19 losartan 50 mg tablet 50 mg PO DAILY 04/29/19 lbwxyafjfqbn-ewbeesfy-bdooiae-folic 1 tab PO DAILY tab 04/29/19 acid 400 mcg-vit K1 20 mcg tablet acetaminophen 500 mg PO Q6H PRN PRN #60 tab 05/15/19 ibuprofen 600 mg PO TID PRN #60 tab 05/15/19 amlodipine 10 mg tablet 10 mg PO DAILY 09/05/21 cholecalciferol (vitamin D3) 50 50 mcg PO DAILY 09/05/21 mcg (2,000 unit) capsule Current Visit Medications: Current Medications Generic Name Dose Route Start Last Admin Trade Name Freq PRN Reason Stop Dose Admin Hyoscyamine Sulfate 0.125 mg 10/06/21 21:22 Hyoscyamine 0.125 Mg Sl/Oral/Chew SL DIRECTED PRN Ringer's Solution 1,000 mls @ 80 mls/hr 10/07/21 06:00 IV 11/05/21 23:59 INFUSION [facility] IV Miscellaneous Supplies 1 each 10/07/21 06:00 Iv Access IV 11/05/21 23:59 DIRECTED [facility] Ondansetron HCl 4 mg 10/06/21 21:22 Ondansetron 4 Mg/2 Ml Vial IVP Q4H PRN PRN Nausea / Vomiting Sodium Chloride 0 ml 10/07/21 06:00 Normal Saline Flush 10 Ml Syr IV 11/05/21 23:59 PRN PRN Sodium Chloride 0 ml 10/07/21 06:00 Normal Saline 10 Ml Vial IJ 11/05/21 23:59 DIRECTED PRN Sterile Water 0 ml 10/07/21 06:00 Water,Injection,Sterile 10 Ml Vial IJ 11/05/21 23:59 DIRECTED PRN PFSH Active Problems Active Problems: Problem Status Onset Code Guaiac positive stools R19.5 Abdominal pain, epigastric R10.13 Abnormal weight loss R63.4 Medical History Medical History Cystocele with uterine prolapse Family history of colon cancer in mother History of cardiac murmur Pt. state she has always been told this but has had no issues History of intracranial aneurysm History of tobacco use Hx of aneurysm hx of ruptured brain aneurysm, per pt it was described as a defect that usually bursts in your mid thirties. No defecits. Hx of uterine prolapse Fitted for Pessary Hyperlipidemia Hypertension Pessary maintenance Positive colorectal cancer screening using Cologuard test (~2020) Prediabetes Venous insufficiency Vitamin D deficiency Surgical History Surgical History Fracture of left distal radius (04/30/19) DOS: 05/15/2019 History of knee replacement Bilateral History of open reduction and internal fixation (ORIF) procedure (05/15/19) Left distal radius and ulna fracture History of tubal ligation Tobacco Smoking/Tobacco Use Status: Former Tobacco Use Alcohol Alcohol Intake: never Substance Use Substance use: Never Substance use type: does not use Vital Signs and Lab Results Vital Signs Most Recent Vital Signs in EMR: Most Recent Vital Signs Temp Pulse Resp Pulse Ox 36.3 C L 77 16 99 10/07/21 09:26 10/07/21 09:26 10/07/21 09:26 10/07/21 09:26 Lab Results Blood Type / Crossmatch: No Data to Display Complete Blood Count: White Blood Count 8.48 10^3/uL (4.4-10.8) 09/26/21 08:55 09/26/21 Red Blood Count 4.41 10^6/uL (3.93-5.22) 09/26/21 08:55 09/26/21 Hemoglobin 13.1 g/dL (11.2-15.7) 09/26/21 08:55 09/26/21 Hematocrit 38.8 % (36.0-46.0) 09/26/21 08:55 09/26/21 Platelet Count 383 10^3/uL (130-400) 09/26/21 08:55 09/26/21 Complete Metabolic Panel: Sodium Level 139 mmol/L (136-145) 09/26/21 08:55 09/26/21 Potassium Level 4.0 mmol/L (3.5-5.1) 09/26/21 08:55 09/26/21 Chloride Level 104 mmol/L (98-107) 09/26/21 08:55 09/26/21 Carbon Dioxide Level 21.7 mmol/L (21.0-32.0) 09/26/21 08:55 09/26/21 Blood Urea Nitrogen 14 mg/dL (7-18) 09/26/21 08:55 09/26/21 Creatinine 0.9 mg/dL (0.55-1.02) 09/26/21 08:55 09/26/21 Estimated GFR/1.73 m2 >= 60.00 (mL/min/1.73m2) 09/26/21 08:55 09/26/21 Calcium Level 10.0 mg/dL (8.5-10.1) 09/26/21 08:55 09/26/21 Albumin 3.9 g/dL (3.4-5.0) 09/26/21 08:55 09/26/21 Glucose Level 131 mg/dL (74-106) H 09/26/21 08:55 09/26/21 Liver Function Panel: Alanine Aminotransferase (ALT/SGPT) 27 U/L (14-59) 09/26/21 08:55 09/26/21 Aspartate Amino Transf (AST/SGOT) 24 U/L (15-37) 09/26/21 08:55 09/26/21 Coagulation Panel: No Data to Display Cardiac Panel: No Data to Display Arterial Blood Gas: No Data to Display Venous Blood Gas: No Data to Display Pancreas Panel: No Data to Display Thyroid Panel: No Data to Display Infectious Disease: Coronavirus (COVID-19)(PCR) Negative (Negative) 10/05/21 09:16 10/05/21 Coronavirus 2019 Source Nasal/Nares 10/05/21 09:16 10/05/21 Blood Cultures: No Data to Display Toxicology Panel: No Data to Display Imaging and Studies Imaging and Studies Study information below may be from another EMR and interpreted by another provider. Please see original notes in EMR for more complete details. Stress Test Summary: DATE OF SERVICE: 02/26/13 : 1950 CONCLUSION: Negative ischemia. Anesthesia Assessment and Plan Anesthesia History Personal History: No History of Anesthesia Complications Family History: No Family History of Anesthesia Complications Exercise Tolerance Exercise Tolerance: Metabolic Equivalents>4 Pertinent Negatives Pertinent Negatives: No Symptoms of GERD and No Major Cardiovascular Symptoms or Complaints Cardiac & Pulmonary Exam Cardiac Exam: Normal S1/S2 Heart Sounds Pulmonary Exam: Clear Bilateral Breath Sounds Implantable Cardiac Device Does patient have a Pacemaker or an ICD?: No Airway Exam Known Difficult Airway: No Mallampati Class: 2 Mouth Opening: Normal (> 3cm) Thyromental Distance: Less than 3 cm Neck Range of Motion: Full ROM Neck Circumference: Normal Teeth Condition: Normal Dentition ASA Classification ASA Score: ASA 2 Emergency Case?: No NPO Status NPO Status: NPO Clears >2 hours, Solids >8 hours Anesthesia Plan Resuscitation Status: Full Code Anesthesia Technique: General Anesthesia Airway Planned: Natural Airway Monitors Used: Standard Monitors
[2021-10-07 09:59] VITALS: BMI 37.2
[2021-10-07] MEDS: Lactated Ringers 1,000 ML 80 ML IV (11:14)
--- NOTE | 2021-10-07 11:30 | STOM_PTH ---
PATIENT: Mary Lares LOC: [facility] U#:[id number] AGE/SX: 71/F ROOM: RE10/07/[address]: Kacey Box : 1950 BED: DIS: 10/07/2021 SPEC #: [id number] RECD: 10/07/21 12:51 STATUS: ESTEBAN REQ #: [id number] ANABEL: 10/07/21 11:[address]: Kacey Box DEPT: Surgical Specimen RECD BY: Cassandra Lopez ENTERED: 10/07/21 12:54 SP TYPE: STOMACH OTHR DR: Sinan Valles Tissues: 1 - BIOPSY BOWEL 2 - STOMACH BIOPSY 3 - STOMACH BIOPSY 4 - STOMACH BIOPSY 5 - ESOPHAGUS BIOPSY 6 - BIOPSY BOWEL Procedures: GROSS AND MICRO LEVEL 4 Comments: [id number]
[2021-10-07 11:55] VITALS: BP 91/63; PULSE 65; RESP 16; TEMP 36.5; O2SAT 98
[2021-10-07] MEDS: Pantoprazole 40 MG VIAL IVP (12:29)
[2021-10-07] MEDS: Sucralfate 1 GM TAB PO (12:29)
[2021-10-07] MEDS: Normal Saline-STERILE FIELD 0.9% 10 ML SYR (12:30)
--- NOTE | 2021-10-07 12:30 | W.ANESPOSTOP ---
Postoperative Evaluation Date, Time and Location Date Performed: 10/07/21 Time Performed: 12:00 Patient Location: Day Surgery Unit Vital Signs Most Recent Imported Vital Signs: Most Recent Vital Signs Temp Pulse Resp BP Pulse Ox 36.5 C 65 16 91/63 L 98 10/07/21 11:55 10/07/21 11:55 10/07/21 11:55 10/07/21 11:55 10/07/21 11:55 Pain Score Most Recent Pain Score: Most Recent Pain Score Pain Level 0 10/07/21 11:55 Assessment Mental Status: Awake (Alert & Oriented to Patient Baseline) Airway and Respiratory Function: Patent airway with normal (patient baseline) respiratory exam Cardiovascular Function: Hemodynamically Stable Hydration Status: Adequately Hydrated Nausea & Vomiting: No Nausea or Vomiting Pain: Pt. Denies Any Pain Peripheral Nerve Block: Patient did not receive a nerve block Postoperative Comments:: Very Difficult IV start in preop
[2021-10-07 12:33] LABS: Abs Immature Grans 0.01 10^3/uL (0.0-0.06); Absolute Basophil Count 0.04 10^3/uL (0.0-0.2); Absolute Eosinophil Count 0.12 10^3/uL (0.0-0.7); Absolute Lymphocyte Count 1.44 10^3/uL (1.2-3.4); Absolute Monocyte Count 0.63 10^3/uL (0.1-0.8); Absolute Neutrophil Count 5.45 10^3/uL (1.2-6.7); Basophils % 0.5; Eosinophils % 1.6; HCT 39.4 % (36.0-46.0); HGB 13.2 g/dL (11.2-15.7); Immature Grans % 0.1; Lymphocytes % 18.7; MCHC 33.5 % (32.0-36.0); MCV 89.5 fL (80-95); MPV 9.7 fL (8.0-11.0); Monocytes % 8.2; Neutrophils % 70.9; Nucleated RBC 0 %; Platelet Count 398 10^3/uL (130-400); RDW 13.8 % (11.7-14.6); RDW-SD 45.2 fL; WBC 7.69 10^3/uL (4.4-10.8)
[2021-10-07 12:37] VITALS: BP 106/70; PULSE 69; RESP 16; TEMP 36.3; O2SAT 99
== END 2021-10-07 13:20 | disposition home or self-care (01) ==
PROVIDERS: PCP Family Medicine; Visit Provider Surgery
PROC: (CPT 45380; principal; 2021-10-07 09:45)
DX: K25.4 Chronic or unspecified gastric ulcer with hemorrhage (principal); K31.7 Polyp of stomach and duodenum; K31.89 Other diseases of stomach and duodenum; K29.61 Other gastritis with bleeding; K29.80 Duodenitis without bleeding; K57.30 Diverticulosis of large intestine without perforation or abscess without bleeding; K44.9 Diaphragmatic hernia without obstruction or gangrene; I10 Essential (primary) hypertension; E78.5 Hyperlipidemia, unspecified; R73.03 Prediabetes; R19.5 Other fecal abnormalities
CPT/HCPCS: 45380; 43239; 88305; 85025; J2001

== ENCOUNTER → 2021-10-27 08:56 | Outpatient (BNVA) | payer MEDICARE, SELFPAY | PROVIDERS: PCP Family Medicine; Referring Provider Family Medicine; Visit Provider Surgery | DX: Z48.815 Encounter for surgical aftercare following surgery on the digestive system (principal); R12 Heartburn; K31.89 Other diseases of stomach and duodenum | CPT/HCPCS: 99213 ==

== ENCOUNTER → 2022-02-02 08:52 | Outpatient (BNVA) | payer MEDICARE, SELFPAY | PROVIDERS: PCP Family Medicine; Referring Provider Family Medicine; Visit Provider Surgery | DX: Z48.815 Encounter for surgical aftercare following surgery on the digestive system (principal); K25.4 Chronic or unspecified gastric ulcer with hemorrhage; R19.5 Other fecal abnormalities | CPT/HCPCS: 99212 ==

== ENCOUNTER 2022-09-29 02:14 | Outpatient (CLI) | payer MEDICARE, SELFPAY ==
[2022-09-29 08:46] LABS: HCT 41.4 % (36.0-46.0); HGB 13.8 g/dL (11.2-15.7)
[2022-09-29 09:48] LABS: Anion Gap 11.9 mmol/L (3-11); BUN 10 mg/dL (7-18); CO2 25.1 mmol/L (21.0-32.0); CREATININE 0.9 mg/dL (0.55-1.02); Calcium 9.8 mg/dL (8.5-10.1); Calculated LDL 151 mg/dL (<100); Chloride 104 mmol/L (98-107); Cholesterol 246 mg/dL (<200); Estimated GFR 67.08 (mL/min/1.73m2); Glucose 114 mg/dL (74-106); HDL Cholesterol 75 mg/dL (40-60); Potassium 3.7 mmol/L (3.5-5.1); Sodium 141 mmol/L (136-145); Triglyceride 102 mg/dL (<150)
[2022-09-29 09:50] LABS: Vitamin B12 > 2000 pg/mL (193-986)
== END 2022-09-29 02:15 | disposition home or self-care (01) ==
LOC: LBO 02:14
PROVIDERS: PCP Family Medicine; Visit Provider Family Medicine
DX: I10 Essential (primary) hypertension (principal); Z87.11 Personal history of peptic ulcer disease; Z00.00 Encounter for general adult medical examination without abnormal findings
CPT/HCPCS: 36415; 80048; 80061; 82607; 85014; 85018

== ENCOUNTER → 2022-10-09 02:18 | Outpatient (CLI) | payer MEDICARE, SELFPAY ==
--- NOTE | 2022-10-09 | DI.MAMMO_ITS ---
Exam(s) MAMMO SCREENING EXAM: MAMMO SCREENING CLINICAL HISTORY: SCREENING FOR BREAST CANCER, [facility] Z00.00. TECHNIQUE: Bilateral full field digital CC and MLO mammographic images were obtained with 3D tomosyn thesis and utilizing computer aided detection (CAD). COMPARISON: Prior mammograms were reviewed. FINDINGS: Previously described asymmetric density in the right breast is actually less evident on the present s tudy, further evidence that it was a benign finding. Benign micro and macro calcifications are again noted in both breasts. There are no new spiculated masses nor malignant appearing microcalcification groups. There is no significant architectural distortion nor skin thickening-retraction. IMPRESSION: No radiographic evidence of malignancy. BI-RADS Category 1 - Negative Breast Density - Category B - Scattered areas of fibroglandular density Breast density Category C or D implies that the patient has dense breast tissue. Dense breast tissue can make it harder to find cancer on a mammogram. Dense breast tissue is also associated with an incr eased risk of breast cancer. This information about the result of the mammogram report was provided to the patient to raise their awareness. Use this report when you speak with the patient about their risks for breast cancer, which includes their family history. At that time, you may recommend additional screening tests (Ultrasoun d or MRI) as these tests may add significant information. A negative radiographic report should not delay biopsy if a dominant or clinically suspicious mass is present. Up to ten percent of cancers are not identified on mammography. A negative report may reinforce clinical impression. Adenosis and dense breasts may obscure an underlying neoplasm. False positive reports average 6 to 10%. Patient will receive a letter notifying them of these results.
--- NOTE | 2022-10-09 09:06 | DI.RAD_ITS ---
Exam(s) XR CHEST 2V PA LATERAL EXAM: XR CHEST 2V PA LATERAL CLINICAL HISTORY: CHRONIC COUGH R05.3. TECHNIQUE: 2D digital imaging was performed. COMPARISON: CR XR CHEST 2V PA LATERAL from 04/30/2019 FINDINGS: 2 views: There is a prominent hiatal hernia now evident. Larger than previous. Heart size is normal. The mediastinum is not widened. Lungs are clear. No infiltrates nor pleural effusions. IMPRESSION: No acute pulmonary findings. Moderate-large size hiatal hernia evident.. DATA REPOSITORY: RADIATION DOSE DELIVERED:
== END ==
PROVIDERS: PCP Family Medicine; Visit Provider Family Medicine
DX: R05.3 Chronic cough (principal); K44.9 Diaphragmatic hernia without obstruction or gangrene; Z12.31 Encounter for screening mammogram for malignant neoplasm of breast
CPT/HCPCS: 77063; 77067; 71046

== ENCOUNTER 2022-10-20 19:20 | Emergency (ER) | payer MEDICARE, SELFPAY ==
[2022-10-20 19:28] VITALS: BP 166/88; PULSE 92; RESP 18; TEMP 36.8; O2SAT 97
[2022-10-20 20:25] VITALS: BP 133/78; PULSE 78; RESP 16; TEMP 36.5; O2SAT 99
--- NOTE | 2022-10-20 21:33 | W.ED.GENAD ---
Discharge Plan Discharge Details Chief Complaint: Abd Prob Primary Care Provider: Sinan Valles ED Provider: Paul Boland Home Meds and New Rx's Prescriptions: No Action losartan 50 mg tablet 50 mg PO DAILY amoxicillin 500 mg capsule 500 mg PO QID Label Comments: prior to dentist appt. One-A-Day Women's 50 Plus 400-20 mcg tablet 1 tab PO DAILY Ca cmb no.1-vit [id number]-B12 120-1,000-10 mg-unit-mg tablet 1 tab PO DAILY flaxseed oil 1,000 mg capsule 1,000 mg PO TID cholecalciferol (vitamin D3) 50 mcg (2,000 unit) capsule 50 mcg PO DAILY amlodipine 10 mg tablet 10 mg PO DAILY acetaminophen 500 mg tablet 650 mg PO Q6H PRN PRN (Reason: pain) folic acid 1 mg Tablet Medical Decision Making This is a 72-year-old female who at around 1630 picked up a heavy sink, soon after felt a sudden sharp pain in her right lower quadrant and noticed a lump. Patient appears to have a incarcerated abdominal wall hernia that is partially reducible, tender, firm. Plan to obtain IV access, obtain routine screening laboratory values and CT imaging with IV contrast. Will obtain a lactate. Patient declines any analgesia but is agreeable to 1 mg Ativan. Laboratory values reveal no evidence of leukocytosis. Lactate normal at 1.0. CMP is unremarkable except for a glucose of 114. Case was discussed with Dr. Castelan who personally attempted to reduce the hernia with me after applying ice for 30 minutes and placing the patient in Trendelenburg. Unfortunately we were unsuccessful. Able to reduce the hernia approximately by 80% but no more, after the attempt to the hernia returned to its size that it was upon presentation. CT abdomen and pelvis pending. Medical Records Medical records reviewed: Yes I reviewed the patient's medical records. Lab Data Lab results reviewed: Yes I reviewed the patient's lab results. Labs: Laboratory Tests Range/Units 10/20/22 10/20/22 10/20/22 21:26 21:26 21:26 WBC (4.4-10.8) 10^3/uL 8.80 RBC (3.93-5.22) 10^6/uL 4.72 Hgb (11.2-15.7) g/dL 14.1 Hct (36.0-46.0) % 42.5 MCV (80-95) fL 90 MCH (27.0-33.0) pg 29.9 MCHC (32.0-36.0) % 33.2 RDW (11.7-14.6) % 13.5 Plt Count (130-400) 10^3/uL 395 MPV (8.0-11.0) fL 9.7 Immature Gran % 0.3 Neutrophils % 76.7 Lymphocytes % 15.2 Monocytes % 6.9 Eosinophils % 0.3 Basophils % 0.6 Nucleated RBC % (0.0-0.3) % 0.0 Absolute Neutrophils (1.2-6.7) 10^3/uL 6.74 H Absolute Lymphocytes (1.2-3.4) 10^3/uL 1.34 Absolute Monocytes (0.1-0.8) 10^3/uL 0.61 Absolute Eosinophils (0.0-0.7) 10^3/uL 0.03 Absolute Basophils (0.0-0.2) 10^3/uL 0.05 VBG Lactate (0.6-1.4) mmol/L 1.0 Sodium (136-145) mmol/L 139 Potassium (3.5-5.1) mmol/L 3.5 Chloride (98-107) mmol/L 103 Carbon Dioxide (21.0-32.0) mmol/L 26.6 Anion Gap (3-11) mmol/L 9.4 BUN (7-18) mg/dL 10 Creatinine (0.55-1.02) mg/dL 0.9 Est GFR (CKD-EPI 2020) (mL/min/1.73m2) 67.08 Glucose (74-106) mg/dL 114 H Calcium (8.5-10.1) mg/dL 9.4 Total Bilirubin (0.2-1.0) mg/dL 0.7 AST (15-37) U/L 32 ALT (14-59) U/L 26 Alkaline Phosphatase (46-116) U/L 104 Total Protein (6.4-8.2) g/dL 8.1 Albumin (3.4-5.0) g/dL 4.2 Lipase (73-393) U/L 81 HPI General Mode of arrival: ambulatory. Date/Time Provider Initiated Documentation: 10/20/22 19:57. Limitations to Documentation: no limitations. Information obtained by: patient. HPI Narrative: This is a 72-year-old female who reports a past medical history of hypertension, not anticoagulated, presenting to the ER for right lower quadrant abdominal pain and bulge that began approximately 20 minutes after lifting a heavy sink around 1630 today. Reports that when that pain initially occurred it caused her to feel nauseous and dry heaves once. Denies any nausea or vomiting now. Patient reports that she has a bowel movement this evening and is still passing gas. Denies recent illness or trauma. Reports the pain at rest is a 5 out of 10 but palpation is a 10 out of 10 Related Data Home Medications Medication Instructions Recorded Confirmed amoxicillin 500 mg capsule 500 mg PO QID 04/29/19 10/20/22 calcium cmb no.1-vit [id number]-B12 1 tab PO DAILY 04/29/19 10/20/22 120 mg-1,000 unit-10 mg tablet flaxseed oil 1,000 mg capsule 1,000 mg PO TID 04/29/19 10/20/22 losartan 50 mg tablet 50 mg PO DAILY 04/29/19 10/20/22 [id number]-hkavskfi-qlniyaf-folic 1 tab PO DAILY 04/29/19 10/20/22 acid 400 mcg-vit K1 20 mcg tablet (One-A-Day Women's 50 Plus) amlodipine 10 mg tablet 10 mg PO DAILY 09/05/21 10/20/22 cholecalciferol (vitamin D3) 50 50 mcg PO DAILY 09/05/21 10/20/22 mcg (2,000 unit) capsule acetaminophen 500 mg tablet 650 mg PO Q6H PRN PRN pain 10/20/22 10/20/22 folic acid 1 mg tablet 10/20/22 Allergies Allergy/AdvReac Type Severity Reaction Status Date / Time penicillin G Allergy Severe hives Verified 10/16/22 09:09 adhesive tape Allergy Intermediate rash Verified 10/16/22 09:09 General Stated Complaint: Abd Prob SHOAIB: 3 Review of Systems Constitutional Constitutional: Denies fever(s) Cardiovascular Cardiovascular: Denies chest pain and Denies dyspnea Respiratory Respiratory: Denies cough and Denies dyspnea Gastrointestinal Gastrointestinal: Reports abdominal pain, Denies constipation, Denies diarrhea, Reports nausea and Reports vomiting Genitourinary Genitourinary: Denies dysuria Musculoskeletal Musculoskeletal: Denies back pain Integumentary/Breasts Skin/Breast: Denies erythema Hematologic/Lymphatic Hematologic/Lymphatic: Denies easy bleeding and Denies easy bruising PFSH All Active Problems Bleeding gastric ulcer (Acute) Guaiac positive stools (Acute) Abdominal pain, epigastric (Acute) Abnormal weight loss (Acute) Medical History Cystocele with uterine prolapse Difficult intravenous access Difficult, even with Ultrasound Family history of colon cancer in mother History of cardiac murmur Pt. state she has always been told this but has had no issues History of intracranial aneurysm History of tobacco use Hx of aneurysm hx of ruptured brain aneurysm, per pt it was described as a defect that usually bursts in your mid thirties. No defecits. Hx of uterine prolapse Fitted for Pessary Hyperlipidemia Hypertension Pessary maintenance Positive colorectal cancer screening using Cologuard test (~2020) Prediabetes Venous insufficiency Vitamin D deficiency Surgical History Fracture of left distal radius (04/30/19) DOS: 05/15/2019 History of knee replacement Bilateral History of open reduction and internal fixation (ORIF) procedure (05/15/19) Left distal radius and ulna fracture History of tubal ligation Social History Smoking/Tobacco Use Status: Former Tobacco Use Quit Date: 10/29/81 Smoking risk assessment performed?: Yes Alcohol Intake: never Drug use: Never Substance use type: does not use Current gender identity: female Do you feel safe at home: Yes Do you feel safe in your relationship?: Yes Additional Social history: Pt states quit smoking 1981 Exam Const General: cooperative, healthy appearing, comfortable and no acute distress Orientation: alert and awake [facility] Head: normal to inspection, normocephalic and atraumatic Eyes Conjunctivae: conjunctivae normal Neck Neck: normal visual inspection, full ROM, no meningeal signs, trachea midline and supple Resp Effort & Inspection: normal respiratory effort and able to speak in complete sentences Auscultation: clear to auscultation bilaterally Cardio Rate: regular rate Rhythm: regular rhythm GI Inspection: obesity and visible herniation Palpation: no guarding and no pulsatile masses Auscultation: normal bowel sounds Other: There is a firm, tender, partially reducible hernia in the right lower quadrant. Skin color is unremarkable. Back/Spine/Pelvis Back: No back tenderness Skin General skin exam: no rashes or lesions noted Neuro General: patient alert, patient awake, moves all extremities and no focal motor deficits Cognition: normal cognition Speech: speech normal Gait: normal gait Sensory Exam: no sensory deficits noted Psych Appearance: grossly normal Mental Status: mental status grossly normal Course Vital Signs Vital signs: Vital Signs Temperature 36.8 C 10/20/22 19:28 Pulse 92 H 10/20/22 19:28 Respiratory Rate 18 10/20/22 19:28 Blood Pressure 166/88 H 10/20/22 19:28 Pulse Oximetry 97 10/20/22 19:28 Temperature 36.5 C 10/20/22 20:25 Temperature Source Temporal Artery Scan 10/20/22 20:25 Pulse 78 10/20/22 20:25 Respiratory Rate 16 10/20/22 20:25 Respiratory Effort 10/20/22 20:13 Blood Pressure 133/78 10/20/22 20:25 Pulse Oximetry 99 10/20/22 20:25 Oxygen Delivery Method Room Air 10/20/22 20:25 Oxygen Flow Rate 0 10/20/22 20:25 Pain Level 7 10/20/22 20:25
[2022-10-20 21:38] LABS: Abs Immature Grans 0.03 10^3/uL (0.0-0.06); Absolute Basophil Count 0.05 10^3/uL (0.0-0.2); Absolute Eosinophil Count 0.03 10^3/uL (0.0-0.7); Absolute Lymphocyte Count 1.34 10^3/uL (1.2-3.4); Absolute Monocyte Count 0.61 10^3/uL (0.1-0.8); Absolute Neutrophil Count 6.74 10^3/uL (1.2-6.7); Basophils % 0.6; Eosinophils % 0.3; HCT 42.5 % (36.0-46.0); HGB 14.1 g/dL (11.2-15.7); Immature Grans % 0.3; Lymphocytes % 15.2; MCH 29.9 pg (27.0-33.0); MCHC 33.2 % (32.0-36.0); MCV 90 fL (80-95); MPV 9.7 fL (8.0-11.0); Monocytes % 6.9; Neutrophils % 76.7; Platelet Count 395 10^3/uL (130-400); RBC 4.72 10^6/uL (3.93-5.22); RDW 13.5 % (11.7-14.6)
--- NOTE | 2022-10-20 21:45 | DI.CT_ITS ---
Exam(s) CT ABDOMEN PELVIS W EXAM: CT ABDOMEN PELVIS W CLINICAL HISTORY: RLQ incarcerated hernia. TECHNIQUE: Imaging Protocol: Axial computed tomography images with coronal and sagittal reformatted images were created and reviewed CONTRAST MATERIAL: Intravenous: Omnipaque-350 100cc Oral: None COMPARISON: CR XR CHEST 2V PA LATERAL from 10/09/2022 FINDINGS: VISUALIZED LUNG BASES: No infiltrates nor pleural effusions. No nodules evident. ABDOMEN: There is a large hiatal hernia. Large part of the stomach is in the chest. LIVER: There are no focal hepatic lesions evident . GALLBLADDER/BILIARY: No obvious gallbladder pathology. CBD is not dilated. PANCREAS: No evidence of pancreatic mass nor dilatation of the pancreatic duct. SPLEEN: Spleen is not enlarged. No obvious intrasplenic lesions. Splenic and portal veins are paten t. ADRENALS: There are no significant adrenal masses. KIDNEYS:No cysts evident. No solid renal masses. No calculi nor hydronephrosis.. ABDOMINAL AORTA: Calcified but not enlarged. Retroaortic left renal vein noted. The common iliac ar teries are also calcified but not enlarged. LYMPH NODES:There is no retroperitoneal nor paraaortic adenopathy. ABDOMINAL WALL: No umbilical hernia. No left inguinal hernia. There is a fat and fluid containing r ight inguinal hernia. No bowel loops noted within the hernia sac. GI: There is no evidence of bowel obstruction, free air, nor abscess. PELVIS: GI: No evidence of appendicitis.There diverticuli seen in the descending left left: As well as in the sigmoid. However, there is no evidence of acute diverticulitis. LYMPH NODES: There is no intrapelvic nor inguinal adenopathy. REPRODUCTIVE: Pessary device is noted in the upper vagina. Uterus size is age-appropriate. There ar e no abnormal adnexal masses. No free fluid. URINARY BLADDER: No calculi nor obvious masses evident OSSEOUS: Healed fracture deformity of the left inferior pubic ramus. No acute fractures identified. Degenerative disc disease. Mild degenerative anterolisthesis L4 upon L5. IMPRESSION: 1. There is a fat and fluid containing right inguinal hernia. However, no bowel loops within the her blanca sac and there is no evidence of bowel obstruction. No free air. No abscess. 2. Diverticulosis of the descending and sigmoid colon but no evidence of acute cholecystitis. No fanny dence of appendicitis. 3. Pessary noted in the upper vagina. 4. Healed fracture deformity of left inferior pubic ramus RADIATION DOSE DELIVERED: 881.6mGy.cm Total DLP DATA REPOSITORY: All CT scans at this facility are submitted to the National Radiology Data Registry (NRDR) Dose Index Registry (DIR) with the [employer] (ACR). RADIATION OPTIMIZATION: All CT scans at this facility use at least one of these dose optimization te chniques: automated exposure control; mA and/or kV adjustment per patient size (includes targeted exa ms where dose is matched to clinical indication); or iterative reconstruction.
[2022-10-20] MEDS: LORazepam 2 MG/ML VIAL 1 MG IVP (21:49)
[2022-10-20 21:59] LABS: ALT 26 U/L (14-59); AST 32 U/L (15-37); Albumin 4.2 g/dL (3.4-5.0); Alkaline Phosphatase 104 U/L (46-116); Anion Gap 9.4 mmol/L (3-11); BUN 10 mg/dL (7-18); Bilirubin, Total 0.7 mg/dL (0.2-1.0); CO2 26.6 mmol/L (21.0-32.0); CREATININE 0.9 mg/dL (0.55-1.02); Calcium 9.4 mg/dL (8.5-10.1); Chloride 103 mmol/L (98-107); Estimated GFR 67.08 (mL/min/1.73m2); Glucose 114 mg/dL (74-106); Lipase 81 U/L (73-393); Potassium 3.5 mmol/L (3.5-5.1); Sodium 139 mmol/L (136-145); Total Protein 8.1 g/dL (6.4-8.2)
[2022-10-20] MEDS: Omnipaque 350 MG/ML 100 ML BTL IJ (22:37)
[2022-10-20] MEDS: Normal Saline - Diluent 50 ML VIAL IJ (22:37)
--- NOTE | 2022-10-20 23:02 | DI.VRAD_ITS ---
PROCEDURE INFORMATION: Exam: CT Abdomen And Pelvis With Contrast Exam date and time: 10/20/2022 10:30 PM Age: 72 years old Clinical indication: Abdominal pain; Other: Rlq incarcerated hernia TECHNIQUE: Imaging protocol: Computed tomography of the abdomen and pelvis with contrast. Radiation optimization: All CT scans at this facility use at least one of these dose optimization techniques: automated exposure control; mA and/or kV adjustment per patient size (includes targeted exams where dose is matched to clinical indication); or iterative reconstruction. Contrast material: OMNI 350; Contrast volume: 100 ml; Contrast route: INTRAVENOUS (IV); COMPARISON: CR XR CHEST 2V PA LATERAL 10/09/2022 9:04 AM FINDINGS: Tubes, catheters and devices: A pessary device is noted. Diaphragm: There is a large hiatal hernia. Liver: Normal. No mass. Gallbladder and bile ducts: Normal. No calcified stones. No ductal dilation. Pancreas: Normal. No ductal dilation. Spleen: Normal. No splenomegaly. Adrenal glands: Normal. No mass. Kidneys and ureters: Normal. No hydronephrosis. Stomach and bowel: Colonic diverticulosis. No evidence of acute diverticulitis. Small bowel loops are nondilated. Appendix: No evidence of appendicitis. Intraperitoneal space: Unremarkable. No free air. No significant fluid collection. Vasculature: Abdominal aortic atherosclerotic plaque. Lymph nodes: Unremarkable. No enlarged lymph nodes. Urinary bladder: Unremarkable as visualized. Reproductive: Unremarkable as visualized. Bones/joints: Degenerative changes in the thoracolumbar spine. Remote bilateral rib fractures. Soft tissues: A fat and fluid containing right inguinal hernia is present. A Bochdalek's hernia is present on the left. IMPRESSION: 1. No acute findings. 2. A fat and fluid containing right inguinal hernia is present. No visualized obstruction. 3. Additional findings as above. Dictated and Authenticated by: Pardeep García MD. Ordering:ARELI Miller MD
[2022-10-20 23:19] LABS: Source Nasal/Nares
[2022-10-20 23:51] LABS: COVID-19 PCR Negative (Negative)
--- NOTE | 2022-10-21 00:14 | ED.PROG_ITS ---
Date of service: 10/21/22 Time of Service: 00:14 Medical Decision Making Patient was signed out to me by my colleague Paul Krystian, please refer to his HPI, physical exam, assessment and plan. At time of signout we are awaiting CT scan results. CT scan results have returned, demonstrates evidence of a fat and fluid containing right inguinal hernia but no evidence of bowel. On reassessment the patient's hernia has notably improved, her pain has significantly improved/almost resolved, and she is feeling much better and she and her are requesting discharge home. I did contact the surgeon on- call Dr. Moser, he reviewed the images and the plan, he does recommend close follow-up Sunday or Sunday of this coming week for reassessment. On reassessment the patient shines shows no evidence of an acute peritoneal abdomen, no clinical evidence of a strangulated inguinal hernia. With her clinical improvement, reduction in size, and CT imaging findings, she is stable for discharge clinically at this time. Recommend ice, no lifting greater than 5 pounds, and close follow-up. Discussed red flags for which to return. I have extensively reviewed the treatment plan and discharge instructions with the patient and their family. I have addressed all patient concerns at this time. The patient and family was made aware of what symptoms to monitor for that would warrant a return to the emergency department. Discussed the plan with the patient and family, they demonstrate verbal understanding and agreement with our assessment and plan at this time. The documentation in this chart was dictated using [employer] dictation software. Please excuse any dictation errors. FINDINGS: Tubes, catheters and devices: A pessary device is noted. Diaphragm: There is a large hiatal hernia. Liver: Normal. No mass. Gallbladder and bile ducts: Normal. No calcified stones. No ductal dilation. Pancreas: Normal. No ductal dilation. Spleen: Normal. No splenomegaly. Adrenal glands: Normal. No mass. Kidneys and ureters: Normal. No hydronephrosis. Stomach and bowel: Colonic diverticulosis. No evidence of acute diverticulitis. Small bowel loops are nondilated. Appendix: No evidence of appendicitis. Intraperitoneal space: Unremarkable. No free air. No significant fluid collection. Vasculature: Abdominal aortic atherosclerotic plaque. Lymph nodes: Unremarkable. No enlarged lymph nodes. Urinary bladder: Unremarkable as visualized. Reproductive: Unremarkable as visualized. Bones/joints: Degenerative changes in the thoracolumbar spine. Remote bilateral rib fractures. Soft tissues: A fat and fluid containing right inguinal hernia is present. A Bochdalek's hernia is present on the left. IMPRESSION: 1. No acute findings. 2. A fat and fluid containing right inguinal hernia is present. No visualized obstruction. 3. Additional findings as above. Thank you for allowing us to participate in the care of your patient. Dictated and Authenticated by: Pardeep García MD 10/20/2022 11:02 PM Eastern Time ([place] & [place]) Sign Out Sign Out Data: Sign Out Comment: What appears to be a abdominal wall incarcerated hernia status post picking up a heavy sink around 1630 this afternoon. Concern for strangulation. Awaiting CT and likely need for surgical consultation. Last updated by Paul Boland PA at 10/20/22 22:59 Discharge Plan Disposition Patient Disposition: Home Condition: Good Discharge Details Clinical Impression: Hernia, inguinal, right Primary Care Provider: Sinan Valles ED Provider: Paul Boland Home Meds and New Rx's Prescriptions: No Action losartan 50 mg tablet 50 mg PO DAILY amoxicillin 500 mg capsule 500 mg PO QID Label Comments: prior to dentist appt. One-A-Day Women's 50 Plus 400-20 mcg tablet 1 tab PO DAILY Ca cmb no.1-vit F8-S4-PX-B12 120-1,000-10 mg-unit-mg tablet 1 tab PO DAILY flaxseed oil 1,000 mg capsule 1,000 mg PO TID cholecalciferol (vitamin D3) 50 mcg (2,000 unit) capsule 50 mcg PO DAILY amlodipine 10 mg tablet 10 mg PO DAILY acetaminophen 500 mg tablet 650 mg PO Q6H PRN PRN (Reason: pain) folic acid 1 mg Tablet Discharge Instructions Instructions: Inguinal Hernia (ED) Additional Instructions: At this time there is no evidence of intestines in your hernia, however you do have an irritated hernia in the right inguinal region. Even though your pain has notably improved it is still critically important that you follow-up closely with your surgeon this week. It is vital that you return immediately if your symptoms return or worsen. In the meantime do not lift anything heavier than 5 pounds. For the next 24 to 48 hours do your best to lie flat at all times, without any straining, and keep a large bag of ice over the right inguinal region. Take Tylenol as needed for pain. If you notice any worsening of your symptoms, or any new symptoms such as vomiting, diarrhea, fever, chills, shortness of breath, chest pain, numbness, weakness, or fainting , please return immediately to the emergency department for reevaluation. Please follow up with your primary care provider as soon as possible for reassessment and reevaluation. As always, it was a pleasure participating in your medical care today. Referrals: Sinan Valles [Primary Care Provider] - Kacey Box DO [OSTEOPATHIC DOCTOR] -
[2022-10-21 00:17] VITALS: BP 145/86; PULSE 92; RESP 16; TEMP 36.5; O2SAT 97
== END 2022-10-21 00:36 | disposition home or self-care (01) ==
PROVIDERS: Physician Assistant; Emergency Provider Student in an Organized Health Care Education/Training Program; PCP Family Medicine
DX: K40.90 Unilateral inguinal hernia, without obstruction or gangrene, not specified as recurrent (principal); I10 Essential (primary) hypertension; Z20.822 Contact with and (suspected) exposure to COVID-19
CPT/HCPCS: 80053; 83690; 87635; 96374; 96375; 99284; 99285; 74177; 81003; 83605; 85025; J2060; J3490

== ENCOUNTER → 2022-11-06 08:42 | Outpatient (BNVA) | payer MEDICARE, SELFPAY | PROVIDERS: PCP Family Medicine; Referring Provider Family Medicine; Visit Provider Surgery | DX: K40.90 Unilateral inguinal hernia, without obstruction or gangrene, not specified as recurrent (principal); K44.9 Diaphragmatic hernia without obstruction or gangrene; I10 Essential (primary) hypertension; Z68.39 Body mass index [BMI] 39.0-39.9, adult | CPT/HCPCS: 99213 ==

== ENCOUNTER → 2022-12-29 08:39 | Outpatient (BNVA) | payer MEDICARE, SELFPAY | PROVIDERS: PCP Family Medicine; Referring Provider Family Medicine; Visit Provider Surgery | DX: K40.90 Unilateral inguinal hernia, without obstruction or gangrene, not specified as recurrent (principal); N81.9 Female genital prolapse, unspecified; K25.4 Chronic or unspecified gastric ulcer with hemorrhage | CPT/HCPCS: 99212; 99213 ==

== ENCOUNTER 2023-02-20 06:09 | Day surgery (SDC) | payer MEDICARE, SELFPAY ==
--- NOTE | 2023-02-19 18:22 | PDOC.DSDIS_ITS ---
Date of service: 02/20/23 Time of Service: 09:17 Discharge Plan Disposition Patient Disposition: Home Condition: Improving Discharge Details Reason For Visit: right inguinal hernia repair Attending Provider: Kacey Box Primary Care Provider: Sinan Valles Home Meds and New Rx's Prescriptions: No Action losartan 50 mg tablet 50 mg PO DAILY One-A-Day Women's 50 Plus 400-20 mcg tablet 1 tab PO DAILY flaxseed oil 1,000 mg capsule 1,000 mg PO TID cholecalciferol (vitamin D3) 50 mcg (2,000 unit) capsule 50 mcg PO DAILY amlodipine 10 mg tablet 10 mg PO DAILY calcium carbonate-vit D3-min 600 mg calcium- 400 unit tablet 1 tab PO DAILY acetaminophen 500 mg tablet 650 mg PO Q6H PRN PRN (Reason: pain) folic acid 1 mg Tablet 1 mg PO DAILY Discharge Instructions Additional Instructions: Dr. Box HERNIA REPAIR ? POSTOPERATIVE INSTRUCTIONS Patients who have this type of surgery can usually be expected to return to work within two weeks and have minimal amounts of discomfort. ? ACTIVITY: The day of surgery should be spent resting. However, you can be up for short periods of time, I.E., going to the bathroom or kitchen. Avoid lifting or straining. On the day following surgery, you can be up and about as desired. ? LIFTING: Restrict your lifting to no more than five (5) pounds for the first week following surgery. For the second week after surgery, don?t lift more than ten pounds.? We will decide when you are done with restrictions and when you can return to work, at your follow-up appointment.? No sexual activity for two weeks.? ? DIET: There are no dietary restrictions following surgery. However, you may want to start with small amounts of liquids to avoid nausea the day of surgery. ? INCISION CARE: You will notice purple skin glue closing the incision.? Do not peel this off- it will wear off on its own.? After 24 hours you may shower. The dressing may be replaced for comfort, but is not necessary. ?An ice bag may be applied to the incision for 72 hours following surgery. ? SIGNS OF INFECTION: It is not unusual to have some black and blue discoloration of the skin around the incision.? ?It will slowly disappear. If you have any increased redness, drainage, fever (above 100 degrees), please contact your doctor for an examination. ? DISCOMFORT: You may expect to have some mild discomfort at the incision sight. If severe pain develops you should contact your doctor for further instr uctions. ? URINATION: Patients who have surgery occasionally have problems urinating. If you experience problems and are not able to urinate within 6 hours following your surgery, please call your doctor immediately or go to your nearest Emergency Room for evaluation. ? DRIVING: NO driving for three (3) days after surgery, or if you are still taking narcotic pain medication.? ? MEDICATIONS: Tylenol 1000mg by mouth every 8 hours.. ??Take the Tylenol continuously for the first 72hrs- not just when you have pain.? Use the tramadol for breakthrough pain.? Use ICE!?? Twenty minutes on, and then off, continuously for the first 72hours. If you are taking narcotic pain medication, follow the instructions on the label and do not drive. Pain medications can make you very constipated. Make sure you are moving your bowels daily. If not, take Miralax, milk of magnesia or magnesium citrate.?? Anesthesia makes you very constipated.? Take a dose of milk of magnesia the morning after surgery. ? REPORT: Unusual swelling, severe pain, unresolved nausea, signs of infection, or difficulty in urination to your surgeon. Follow up in clinic with Dr. Box in 2 weeks.? [phone] Stand Alone Forms: Anesthesia Discharge InstAggie Malone (DSU) Activity:: see above Remove Dressings/Wound Care:: 24 hours Shower/Bathe:: 24 hours Diet:: As Tolerated Discharge Orders Discharge Orders: Discharge Order (Routine); Ordered 02/20/23 Ordered By: Kacey Box DS: Diagnosis Discharge Diagnosis (1) Reducible right inguinal hernia: Status: Acute
[2023-02-20] VITALS (10 sets, daily range): BP systolic 76–138; BP diastolic 41–81; PULSE 57–85; RESP 17–23; TEMP 36.1–36.6; O2SAT 95–99; BMI 41.5
--- NOTE | 2023-02-20 06:23 | ANES.PREOP_ITS ---
General Info Date of Service Date Performed: 02/20/23 Height: 4 ft 9 in Weight: 87.09 kg Body Mass Index (BMI): 41.5 Surgical Procedure: Operation Date: 02/20/23 07:40 Proposed Procedure Side Surgeon p Herniorrhaphy Inguinal w/Mesh Right Kacey Box DO Meds Allergies and Home Medications Allergies Allergy/AdvReac Type Severity Reaction Status Date / Time penicillin G Allergy Severe hives Verified 02/20/23 06:23 Home Medication Medication Instructions Recorded flaxseed oil 1,000 mg capsule 1,000 mg PO TID 04/29/19 losartan 50 mg tablet 50 mg PO DAILY 04/29/19 jlffrwkuopkf-yzqolgvz-thvqnzz-folic 1 tab PO DAILY 04/29/19 acid 400 mcg-vit K1 20 mcg tablet (One-A-Day Women's 50 Plus) amlodipine 10 mg tablet 10 mg PO DAILY 09/05/21 cholecalciferol (vitamin D3) 50 50 mcg PO DAILY 09/05/21 mcg (2,000 unit) capsule acetaminophen 500 mg tablet 650 mg PO Q6H PRN PRN pain 10/20/22 folic acid 1 mg tablet 1 mg PO DAILY 10/20/22 calcium carb-vit D3-minerals 600 1 tab PO DAILY 11/06/22 mg calcium-400 unit tablet Current Visit Medications: Current Medications Generic Name Dose Route Start Last Admin Trade Name Freq PRN Reason Stop Dose Admin Acetaminophen 1,000 mg 02/20/23 07:16 Acetaminophen 500 Mg Tab PO 02/20/23 07:17 PREOP ONE Gabapentin 600 mg 02/20/23 07:16 Gabapentin 300 Mg Cap PO 02/20/23 07:17 PREOP ONE Ringer's Solution 1,000 mls @ 80 mls/hr 02/20/23 06:00 IV 03/21/23 23:59 INFUSION PIPER Cefazolin Sodium/Dextrose 2 gm in 50 mls @ 100 mls/hr 02/20/23 06:00 Ancef Duplex IVPB 03/21/23 23:59 PREOP PIPER Ondansetron HCl 4 mg/ Sodium 52 mls @ 200 mls/hr 02/20/23 09:18 Chloride IVPB Q6H PRN PRN IV Miscellaneous Supplies 1 each 02/20/23 06:00 Iv Access IV 03/21/23 23:59 DIRECTED PIPER Morphine Sulfate 2 mg 02/20/23 09:18 Morphine 4 Mg/Ml Syr IVP Q1H PRN PRN Sodium Chloride 0 ml 02/20/23 06:00 Normal Saline Flush 10 Ml Syr IV 03/21/23 23:59 PRN PRN Sodium Chloride 0 ml 02/20/23 06:00 Normal Saline 10 Ml Vial IJ 03/21/23 23:59 DIRECTED PRN Sterile Water 0 ml 02/20/23 06:00 Water,Injection,Sterile 10 Ml Vial IJ 03/21/23 23:59 DIRECTED PRN Tramadol HCl 50 mg 02/20/23 09:18 Tramadol 50 Mg Tab PO Q6H PRN PRN Pain PFSH Active Problems Active Problems: Problem Status Onset Code Hiatal hernia K44.9 Chronic cough R05.3 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 state she has always been told this but has had no issues History of intracranial aneurysm 1982 per states this was described as a defect History of tobacco use Hx of aneurysm hx of ruptured brain aneurysm, per pt it was described as a defect that usually bursts in your mid thirties. No defecits. Hx of uterine prolapse Fitted for Pessary Hyperlipidemia Hypertension Peptic ulcer disease Pessary maintenance Patient presents every 3 months for removal cleaning and reinsertion. Positive colorectal cancer screening using Cologuard test (~2020) Prediabetes Venous insufficiency Vitamin D deficiency Medical History Comments:: Pt. states she would like to avoid any narcotics if possible Surgical History Surgical History Fracture of left distal radius (04/30/19) DOS: 05/15/2019 History of knee replacement (~2003) Bilateral History of open reduction and internal fixation (ORIF) procedure (05/15/19) Left distal radius and ulna fracture History of tubal ligation Tobacco Smoking/Tobacco Use Status: Former Tobacco Use Alcohol Alcohol Intake: never Substance Use Substance use: Never Substance use type: does not use Vital Signs and Lab Results Lab Results Blood Type / Crossmatch: No Data to Display Complete Blood Count: No Data to Display Complete Metabolic Panel: No Data to Display Liver Function Panel: No Data to Display Coagulation Panel: No Data to Display Cardiac Panel: No Data to Display Arterial Blood Gas: No Data to Display Venous Blood Gas: No Data to Display Pancreas Panel: No Data to Display Thyroid Panel: No Data to Display Infectious Disease: No Data to Display Blood Cultures: No Data to Display Toxicology Panel: No Data to Display Imaging and Studies Imaging and Studies Study information below may be from another EMR and interpreted by another provider. Please see original notes in EMR for more complete details. Stress Test Summary: DATE OF SERVICE: 02/26/13 : 1950 CONCLUSION: Negative ischemia. Anesthesia Assessment and Plan Anesthesia History Personal History: No History of Anesthesia Complications Family History: No Family History of Anesthesia Complications Exercise Tolerance Exercise Tolerance: Metabolic Equivalents>4 Pertinent Negatives Pertinent Negatives: No Symptoms of GERD, No Major Cardiovascular Symptoms or Co mplaints and No Major Pulmonary Symptoms or Complaints Cardiac & Pulmonary Exam Cardiac Exam: Normal S1/S2 Heart Sounds Pulmonary Exam: Clear Bilateral Breath Sounds Implantable Cardiac Device Does patient have a Pacemaker or an ICD?: No Airway Exam Known Difficult Airway: No Mallampati Class: 2 Mouth Opening: Normal (> 3cm) Thyromental Distance: Less than 3 cm Neck Range of Motion: Full ROM Neck Circumference: Normal Teeth Condition: Normal Dentition ASA Classification ASA Score: ASA 2 Emergency Case?: No NPO Status NPO Status: NPO Clears >2 hours, Solids >8 hours Anesthesia Plan Resuscitation Status: Full Code Anesthesia Technique: General Anesthesia Airway Planned: Endotracheal Tube Pain Management: Surgeon and patient request nerve block Monitors Used: Standard Monitors
[2023-02-20] MEDS: Gabapentin 300 MG CAP 600 MG PO (07:10)
[2023-02-20] MEDS: Acetaminophen 500 MG TAB 1000 MG PO (07:10)
[2023-02-20] MEDS: Lactated Ringers 1,000 ML 80 ML IV (07:28)
--- NOTE | 2023-02-20 07:29 | W.PM.HP.N ---
Date of service: 02/20/23 Time of Service: 07:30 Assessment and Plan Assessment and plan (1) Reducible right inguinal hernia: Status: Acute Assessment and plan: I discussed the nature of inguinal hernias with the pt and how they form, and consequences of incarceration.? We discussed the warning signs of incarcerations (Severe pain/hardness and inability to reduce the hernia/vomiting/redness and fever) ?and when/how to seek medical attention (our office/PCP or ED).? ?I discussed the surgery in detail and the complications related to the surgery and the anesthesia.? I do recommend that the pt have a nerve block for postop pain control.? We also discussed multi-modality pain management.? Pt. expressed understanding; all questions were answered to the patient satisfaction and they do wish to proceed with surgery.? Patient was given an educational booklet & and a copy of the postop instructions and expressed understanding of how to care for themselves after surgery. Risks of the surgery include but are not limited to: Bleeding/infection/pneumonia/damage to blood vessels or bladder or?bowels/blood clots or PE/chronic pain/urinary retention/chronic numbness/reoccurrence/reaction to mesh requiring removal/damage to testicle or sterility/complications of anesthesia.?We also discussed the possibility of postop urinary retention or bruising. ?The pt will have a pre-Op PE to ensure fitness for anesthesia, and preOp cardiac testing as deemed necessary. ?The procedure will be done with abx and under sterile conditions. This is an outpt day surgery.? ??The pt requires a ride home from surgery and someone to stay with the pt for 24 hrs after anesthesia.? No lifting over 5 pounds for 2-3 weeks after surgery.? Also take Miralax postop to avoid constipation. (2) Hiatal hernia: Status: Chronic (3) Compression neuropathy of right upper extremity: Status: Acute (4) Osteopenia: Status: Acute (5) BMI 39.0-39.9,adult: Status: Acute (6) Difficult intravenous access: Status: Acute History of Present Illness Narrative: Patient is here today for right inguinal hernia surgery. She has had no changes in the interval. She has no pain today. Site is marked. We reviewed postop cares. Reviewed risks and benefits of surgery. Review of Systems Narrative: Patient denies any chest pain or shortness of breath today. She denies any nausea vomiting. No diarrhea history soft reducible and nontender. She has had no interval changes in any of her medications or her health status. She denies any cough, sore throat, fevers, or upper respiratory illness type symptoms. PFSH All Active Problems Hiatal hernia (Chronic) Chronic cough (Acute) Compression neuropathy of right upper extremity (Acute) Osteopenia (Acute) Allergic rhinitis (Acute) Bunion, left foot (Acute) Osteoarthritis of knees, bilateral (Acute) BMI 39.0-39.9,adult (Acute) Difficult intravenous access (Acute) Prolapse of female pelvic organs (Acute) 05/2019 70 mm ring with support pessary fitted to treat stage II uterine and stage I cystocele. Reducible right inguinal hernia (Acute) Medical History Abdominal pain, epigastric Abnormal weight loss Bleeding gastric ulcer Cystocele with uterine prolapse Difficult intravenous access Difficult, even with Ultrasound Family history of colon cancer in mother Guaiac positive stools History of cardiac murmur Pt. state she has always been told this but has had no issues History of intracranial aneurysm 1982 per states this was described as a defect History of tobacco use Hx of aneurysm hx of ruptured brain aneurysm, per pt it was described as a defect that usually bursts in your mid thirties. No defecits. Hx of uterine prolapse Fitted for Pessary Hyperlipidemia Hypertension Peptic ulcer disease Pessary maintenance Patient presents every 3 months for removal cleaning and reinsertion. Positive colorectal cancer screening using Cologuard test (~2020) Prediabetes Venous insufficiency Vitamin D deficiency Surgical History Fracture of left distal radius (04/30/19) DOS: 05/15/2019 History of knee replacement (~2003) Bilateral History of open reduction and internal fixation (ORIF) procedure (05/15/19) Left distal radius and ulna fracture History of tubal ligation Social History Smoking/Tobacco Use Status: Former Tobacco Use Quit Date: 10/29/81 Smoking risk assessment performed?: Yes Alcohol Intake: never Drug use: Never Substance use type: does not use Current gender identity: female Do you feel safe at home: Yes Do you feel safe in your relationship?: Yes Meds Allergies and Home Medications Allergies Allergy/AdvReac Type Severity Reaction Status Date / Time penicillin G Allergy Severe hives Verified 02/20/23 06:23 Home Medications Medication Instructions Recorded Confirmed Type flaxseed oil 1,000 mg capsule 1,000 mg PO TID 04/29/19 02/20/23 History losartan 50 mg tablet 50 mg PO DAILY 04/29/19 02/20/23 History utftgmwkluzh-hboaevgo-vzhfkcj-folic 1 tab PO DAILY 04/29/19 02/20/23 History acid 400 mcg-vit K1 20 mcg tablet (One-A-Day Women's 50 Plus) amlodipine 10 mg tablet 10 mg PO DAILY 09/05/21 02/20/23 History cholecalciferol (vitamin D3) 50 50 mcg PO DAILY 09/05/21 02/20/23 History mcg (2,000 unit) capsule acetaminophen 500 mg tablet 650 mg PO Q6H PRN PRN pain 10/20/22 02/20/23 History folic acid 1 mg tablet 1 mg PO DAILY 10/20/22 02/20/23 History calcium carb-vit D3-minerals 600 1 tab PO DAILY 11/06/22 02/20/23 History mg calcium-400 unit tablet Exam Narrative Exam Narrative: PHYSICAL EXAM GENERAL APPEARANCE: Alert, healthy appearance, oriented, x 3,? in no acute distress HYDRATION: Well hydrated HEAD, EYES, EARS, NECK, THROAT: Head is normocephalic, pupils equal, round, reactive to light and accommodation, ocular movement intact, sclera clear and no jaundice. ?Dentition intact. No sore throat.? No jaw pain. NECK: no lymphadenopathy.? Trachea midline.? Neck supple.? No JVD LUNGS: normal respiration/normal chest excursion. ?Clear to auscultation bilaterally. ?No wheeze. ?HEART: Regular rate and rhythm. no murmurs EXTREMITY: No edema or cyanosis.? no leg pain, redness, swelling.? ABDOMEN: soft and non-tender to palpation.? Normal bowel sounds.? Hernia site marked Results Last Vital Signs Temp 36.6 C 02/20/23 06:26 Pulse 85 02/20/23 06:26 Resp 18 02/20/23 06:26 BP 138/77 02/20/23 06:26 Pulse Ox 98 02/20/23 06:26 Time Spent Time spent with Patient: <40 minutes Time was spent: preparing to see the patient(eg.review tests), obtaining and/or reviewing separately otained hiistory, ordering medications,tests, procedures, referring, communicating with other health care management specialist, indepentently interpreting results, counseling the patient and care coordination
[2023-02-20] MEDS: ceFAZolin 2 GM/50 ML BAG IVPB (07:43)
--- NOTE | 2023-02-20 08:16 | W.ANESNERVE ---
Nerve Block Single Injection Procedure Date and Time Date Performed: 02/20/23 Procedure Start: 07:50 Location Where Procedure Performed Procedure Location: Operating Room Procedure Stop: 07:58 Reason Performed: Postoperative Analgesia Requesting Provider: Kacey Box Timeout Performed Timeout Performed: Yes Monitoring Used ECG, Blood Pressure, SpO2 and ETCO2 Sterility Sterility: Hand Hygiene, Surgical Cap, Surgical Mask, Sterile Gloves and Chlorhexidine Sedation Given During Procedure Sedation Given (Indicate Dose Given): No Sedation given Patient Mental Status Patient Mental Status: Performed under general anesthesia Nerve Block 1st Nerve Block: Laterality: Right Block Type: TAP Unilateral Ultrasound Image Saved?: Yes Needle / Catheter Used: 100mm SonoPlex II Local Anesthetic Bolus (Indicate Dose Given): Injected in 3-5ml increments after negative blood aspiration and Bupivacaine 0.25% Dose:: 30 ml Additives (Indicate Dose Given): None Ultrasound: Sterile probe cover and gel used Nerve Stimulator: Not Used Paresthesia: None Procedure Tolerated: No Complications and Patient tolerated well Procedure Outcome: Successful Performed By: Justin Londono
[2023-02-20] MEDS: Bupivacaine 0.25% Pres-Free 30 ML VIAL (08:47)
--- NOTE | 2023-02-20 09:08 | ROE_ITS ---
Date of service: 02/20/23 Time of Service: 09:08 Operative Note Operative Note DATE OF PROCEDURE: 02/20/23 PRE-OP DIAGNOSIS: right inguinal hernia POST-OP DIAGNOSIS: same PROCEDURE: open right inguinal hernia w/ mesh SURGEON: Kacey Gilman ASSISTING SURGEON: Paul Boland ANESTHESIA TYPE: Local By Surgeon, General LMA/ETT and Primary Nerve Block Refer to Anesthesia Record ESTIMATED BLOOD LOSS: 5 PATHOLOGY: none sent COMPLICATIONS: None Patient was transported to: PACU Patient's condition: stable Procedure Description: INDICATIONS: The pt is here today for surgery regarding symptomatic --- inguinal hernia that has failed outpatient conservative medical management and he is here today for repair. Informed consent was obtained, explaining risks and benefits of the procedure including but not limited to bleeding, infection, pneumonia, blood clots, chronic pain, chronic numbness, damage to testicle resulting in r emoval, recurrence of hernia, reaction to Mesh necessitating removal, and other unforetold complications, and complications of anesthesia-which were addressed by the MARKETING DEVELOPMENT REPRESENTATIVE. The patient is marked in preOp prior to the procedure DESCRIPTION OF PROCEDURE:? The pt is then brought to the operative room suite. Anesthesia was administered per the Department of Anesthesia. ?A nerve block was performed by anesthesia under US guidance. The patient was prepped and draped in the usual sterile fashion using ChloraPrep scrub solution. Pause for the cause was done. She did receive preop IV antibiotics, and 30 mL of .25% Marcaine w/ epinephrine was used for local anesthetization. A #12 blade was used to make an incision over the external ring. Electrocautery used to provide hemostasis and dissect down to the fascia. The fascia was pretty much obliterated and there was nothing to open. The nerve was not identified. ? Electro-cautery is used to provide hemostasis. There is large direct hernia pushing through the floor. ? Electrocautery is used to provide hemostasis.?? The sack contains omentum. ?The sac is excised so we could return the contents to the abdomen. The omentum is returned to the abdominal cavity.? The defect is than oversewn w/ 2-0 vicryl.? Please see RN notes from Lot number of the [employer] mesh patch/plug.? The patch was then placed onto the floor, and using 2-0 Vicryl, sewn into the pubic tubercle and the shelving portions of the inguinal ligament, in the standard Lichenstein fashion.? The wound was copiously irrigated. There was no bleeding noted. All structures are returned to normal anatomical position. The nerve is not sewn into the mesh, nor caught up in any sutures. The external oblique is re- approximated using 2-0 vicryl in a running fashion. ?Deep tissue was appro ximated with 3-0 Vicryl in a running fashion, and skin was approximated with 4-0 Monocryl in a running subcuticular fashion. Skin glue and sterile dressings are applied. The patient tolerated the procedure without complications to recovery in stable condition. KACEY GILMAN, DO
[2023-02-20] MEDS: Normal Saline Flush 10 ML SYR IV (09:17)
[2023-02-20] MEDS: ePHEDrine 25 MG/5 ML Syringe IVP (09:17)
--- NOTE | 2023-02-20 11:01 | W.ANESPOSTOP ---
Postoperative Evaluation Date, Time and Location Date Performed: 02/20/23 Time Performed: 11:01 Patient Location: Day Surgery Unit Vital Signs Most Recent Imported Vital Signs: Most Recent Vital Signs Temp Pulse Resp BP Pulse Ox 36.5 C 65 17 131/81 97 02/20/23 10:23 02/20/23 10:46 02/20/23 10:46 02/20/23 10:46 02/20/23 10:46 Pain Score Most Recent Pain Score: Most Recent Pain Score Pain Level 4 02/20/23 10:46 Assessment Mental Status: Awake (Alert & Oriented to Patient Baseline) Airway and Respiratory Function: Patent airway with normal (patient baseline) respiratory exam Cardiovascular Function: Hemodynamically Stable Hydration Status: Adequately Hydrated Nausea & Vomiting: No Nausea or Vomiting Pain: Pt. Denies Any Pain Peripheral Nerve Block: Regional nerve block not resolved at time of post operative discharge Postoperative Comments:: Patient reporting some dizziness. Orthostatics performed and BP stable. Patient wishes to be discharged at this time. Educated to how to contact anesthesia if necessary.
--- NOTE | 2023-02-20 16:53 | PDOC.DSDIS_ITS ---
Date of service: 02/20/23 Time of Service: 10:00 Discharge Plan Disposition Patient Disposition: Home Condition: Improving Discharge Details Reason For Visit: right inguinal hernia repair Attending Provider: Kacey Box Primary Care Provider: Sinan Valles Home Meds and New Rx's Prescriptions: No Action losartan 50 mg tablet 50 mg PO DAILY One-A-Day Women's 50 Plus 400-20 mcg tablet 1 tab PO DAILY flaxseed oil 1,000 mg capsule 1,000 mg PO TID cholecalciferol (vitamin D3) 50 mcg (2,000 unit) capsule 50 mcg PO DAILY amlodipine 10 mg tablet 10 mg PO DAILY calcium carbonate-vit D3-min 600 mg calcium- 400 unit tablet 1 tab PO DAILY acetaminophen 500 mg tablet 650 mg PO Q6H PRN PRN (Reason: pain) folic acid 1 mg Tablet 1 mg PO DAILY Discharge Instructions Additional Instructions: Dr. Box HERNIA REPAIR ? POSTOPERATIVE INSTRUCTIONS Patients who have this type of surgery can usually be expected to return to work within two weeks and have minimal amounts of discomfort. ? ACTIVITY: The day of surgery should be spent resting. However, you can be up for short periods of time, I.E., going to the bathroom or kitchen. Avoid lifting or straining. On the day following surgery, you can be up and about as desired. ? LIFTING: Restrict your lifting to no more than five (5) pounds for the first week following surgery. For the second week after surgery, don?t lift more than ten pounds.? We will decide when you are done with restrictions and when you can return to work, at your follow-up appointment.? No sexual activity for two weeks.? ? DIET: There are no dietary restrictions following surgery. However, you may want to start with small amounts of liquids to avoid nausea the day of surgery. ? INCISION CARE: You will notice purple skin glue closing the incision.? Do not peel this off- it will wear off on its own.? After 24 hours you may shower. The dressing may be replaced for comfort, but is not necessary. ?An ice bag may be applied to the incision for 72 hours following surgery. ? SIGNS OF INFECTION: It is not unusual to have some black and blue discoloration of the skin around the incision.? ?It will slowly disappear. If you have any increased redness, drainage, fever (above 100 degrees), please contact your doctor for an examination. ? DISCOMFORT: You may expect to have some mild discomfort at the incision sight. If severe pain develops you should contact your doctor for further instr uctions. ? URINATION: Patients who have surgery occasionally have problems urinating. If you experience problems and are not able to urinate within 6 hours following your surgery, please call your doctor immediately or go to your nearest Emergency Room for evaluation. ? DRIVING: NO driving for three (3) days after surgery, or if you are still taking narcotic pain medication.? ? MEDICATIONS: Tylenol 1000mg by mouth every 8 hours.. ??Take the Tylenol continuously for the first 72hrs- not just when you have pain.? Use the tramadol for breakthrough pain.? Use ICE!?? Twenty minutes on, and then off, continuously for the first 72hours. If you are taking narcotic pain medication, follow the instructions on the label and do not drive. Pain medications can make you very constipated. Make sure you are moving your bowels daily. If not, take Miralax, milk of magnesia or magnesium citrate.?? Anesthesia makes you very constipated.? Take a dose of milk of magnesia the morning after surgery. ? REPORT: Unusual swelling, severe pain, unresolved nausea, signs of infection, or difficulty in urination to your surgeon. Follow up in clinic with Dr. Box in 2 weeks.? [phone] Stand Alone Forms: Anesthesia Discharge InstAnes. FaisalNerve Block InstructionsAggie (DSU) Activity:: see above Remove Dressings/Wound Care:: 24 hours Shower/Bathe:: 24 hours Diet:: As Tolerated Discharge Orders Discharge Orders: Discharge Order (Routine); Ordered 02/20/23 Ordered By: Kacey Box Discharge Data Discharge Date/Time-TO BE ENTERED AT DEPARTURE: 02/20/23 11:00 DS: Diagnosis Discharge Diagnosis (1) Reducible right inguinal hernia: Status: Acute Asessment and Plan: Out Pt Post-Op Note The patient is doing well post-op from their hernia surgery.? They are having no nausea or vomiting. They are tolerating liquids and a snack. The pt is not having any chest pain or SOB.? Their pain is adequately controlled. They have been able to urinate.? ?HEENT:? no eye pain/drainage/redness/swelling. Mild sore throat ?Cardio- NSR, no chest pain, BP stable- see VS record ?Pulm: no sob or productive cough. No hemoptysis ?Incision- dressing is c/d/i w/ no excessive bleeding or drainage ?I discussed with the patient the findings at the time of surgery and the patient?s progress. ?We reviewed expectations at home; what the patient could expect for recovery time, and in the post-operative period.? We discussed the importance of walking to avoid blood clots and pneumonia.? We discussed and reviewed the patient's post-operative wound care and dressing needs.?? We reviewed their step-jiménez pain management plan; Rx called to the pharmacy of their choice.? We reviewed activity, limitations, and return to work-see discharge instructions. We reviewed warning signs, and when to seek medical attention- see d/c instructions.?? Patient was given a postoperative follow-up appointment. Patient verbalized understanding of their postoperative instructions, how do to take care of themselves and their incision, and the pain management plan. Please see discharge instructions.?
== END 2023-02-20 11:00 | disposition home or self-care (01) ==
PROVIDERS: PCP Family Medicine; Visit Provider Surgery
PROC: (CPT 49505; principal; 2023-02-20 07:30)
DX: K40.90 Unilateral inguinal hernia, without obstruction or gangrene, not specified as recurrent (principal)
CPT/HCPCS: 49505; 76942; C1781; J0690; J1100; J2405; J2704

== ENCOUNTER → 2023-03-01 08:57 | Outpatient (BNVA) | payer MEDICARE, SELFPAY | PROVIDERS: PCP Family Medicine; Referring Provider Family Medicine; Visit Provider Surgery | DX: Z48.817 Encounter for surgical aftercare following surgery on the skin and subcutaneous tissue (principal) ==

== ENCOUNTER 2023-09-17 17:50 | Outpatient (REF) | payer MEDICARE, SELFPAY ==
[2023-09-17 19:00] LABS: BUN 8 mg/dL (7-18); CREATININE 0.7 mg/dL (0.55-1.02); Chloride 102 mmol/L (98-107); Estimated GFR 90.14 (mL/min/1.73m2); Glucose 99 mg/dL (74-106); Potassium 3.4 mmol/L (3.5-5.1); Sodium 139 mmol/L (136-145)
== END 2023-09-17 17:51 | disposition home or self-care (01) ==
LOC: NCHCN 17:50
PROVIDERS: PCP Family Medicine; Visit Provider Family Medicine
DX: I10 Essential (primary) hypertension (principal)
CPT/HCPCS: 80048

== ENCOUNTER 2024-08-04 10:12 | Outpatient (REF) | payer MEDICARE, SELFPAY ==
[2024-08-04 16:51] LABS: Abs Immature Grans 0.01 10^3/uL (0.0-0.06); Absolute Basophil Count 0.07 10^3/uL (0.0-0.2); Absolute Eosinophil Count 0.12 10^3/uL (0.0-0.7); Absolute Lymphocyte Count 1.69 10^3/uL (1.2-3.4); Absolute Monocyte Count 0.59 10^3/uL (0.1-0.8); Absolute Neutrophil Count 4.04 10^3/uL (1.2-6.7); Basophils % 1.1 %; Eosinophils % 1.8 %; HCT 39.9 % (36.0-46.0); HGB 13.2 g/dL (11.2-15.7); Immature Grans % 0.2 %; Lymphocytes % 25.9 %; MCH 30.4 pg (27.0-33.0); MCHC 33.1 % (32.0-36.0); MCV 92 fL (80-95); RBC 4.34 10^6/uL (3.93-5.22); RDW 13.6 % (11.7-14.6); RDW-SD 46.4 fL; WBC 6.52 10^3/uL (4.4-10.8)
[2024-08-04 17:06] LABS: Diff Comment PLT Morph Reviewed; RBC Morphology Normal
[2024-08-04 17:40] LABS: Anion Gap 12.3 mmol/L (3-11); BUN 14 mg/dL (7-18); CO2 20.7 mmol/L (21.0-32.0); CREATININE 0.8 mg/dL (0.55-1.02); Calcium 9.9 mg/dL (8.5-10.1); Chloride 108 mmol/L (98-107); Estimated GFR 76.31 (mL/min/1.73m2); Glucose 101 mg/dL (74-106); Magnesium 2.1 mg/dL (1.8-2.4); Potassium 4.6 mmol/L (3.5-5.1); Sodium 141 mmol/L (136-145)
== END 2024-08-04 10:13 | disposition home or self-care (01) ==
LOC: NCHCN 10:12
PROVIDERS: PCP Student in an Organized Health Care Education/Training Program; Visit Provider Student in an Organized Health Care Education/Training Program
DX: I10 Essential (primary) hypertension (principal)
CPT/HCPCS: 80048; 83735; 85025

== ENCOUNTER 2025-02-06 09:15 | Outpatient (CLI) | payer MEDICARE, SELFPAY ==
[2025-02-06 09:21] LABS: Abs Immature Grans 0.02 10^3/uL (0.0-0.06); Absolute Basophil Count 0.04 10^3/uL (0.0-0.2); Absolute Eosinophil Count 0.12 10^3/uL (0.0-0.7); Absolute Lymphocyte Count 2.08 10^3/uL (1.2-3.4); Absolute Monocyte Count 0.75 10^3/uL (0.1-0.8); Absolute Neutrophil Count 4.33 10^3/uL (1.2-6.7); Basophils % 0.5 %; Eosinophils % 1.6 %; HCT 42.3 % (36.0-46.0); Immature Grans % 0.3 %; Lymphocytes % 28.3 %; MCH 30.8 pg (27.0-33.0); MCHC 33.1 % (32.0-36.0); MCV 93 fL (80-95); MPV 10.2 fL (8.0-11.0); Monocytes % 10.2 %; Neutrophils % 59.1 %; Platelet Count 324 10^3/uL (130-400); RBC 4.54 10^6/uL (3.93-5.22); RDW 13.4 % (11.7-14.6); RDW-SD 46.4 fL; WBC 7.34 10^3/uL (4.4-10.8)
[2025-02-06 10:00] LABS: Anion Gap 12.1 mmol/L (3-11); BUN 12 mg/dL (7-18); CO2 22.9 mmol/L (21.0-32.0); CREATININE 0.9 mg/dL (0.55-1.02); Chloride 107 mmol/L (98-107); Estimated GFR 66.26 (mL/min/1.73m2); Glucose 123 mg/dL (74-106); Potassium 3.6 mmol/L (3.5-5.1); Sodium 142 mmol/L (136-145); TSH 1.87 uIU/mL (0.36-3.74)
== END 2025-02-06 09:16 | disposition home or self-care (01) ==
LOC: LBO 09:16
PROVIDERS: PCP Student in an Organized Health Care Education/Training Program; Visit Provider Student in an Organized Health Care Education/Training Program
DX: I10 Essential (primary) hypertension (principal)
CPT/HCPCS: 36415; 80048; 83735; 84443; 85025

== ENCOUNTER 2025-02-13 08:48 | Outpatient (RCR) | payer MEDICARE, SELFPAY ==
--- NOTE | 2025-02-19 08:36 | W.HOLTRPT ---
Date of service: 02/19/25 Time of Service: 08:37 Holter Monitor Report Referring Provider:: Brian Adam Indications:: Not provided Holter Monitor Note: This is a 48-hour Holter monitor. Predominant rhythm was sinus with an average heart rate of 75. Minimum was 51, maximum 104. There were very rare ventricular ectopic beats There were frequent atrial premature beats comprising 8% of total. There were occasional self-limited atrial runs. The longest of these lasted for 11 seconds. There was no atrial fibrillation, no high-grade AV block , no pauses greater than 3 seconds. No symptoms were reported
== END 2025-02-25 23:59 | disposition home or self-care (01) ==
LOC: CARDOPNVT 08:48
PROVIDERS: PCP Student in an Organized Health Care Education/Training Program; Visit Provider Internal Medicine Cardiovascular Disease
DX: I49.1 Atrial premature depolarization (principal)
CPT/HCPCS: 93227; 93225; 93226

== ENCOUNTER 2025-03-04 00:42 | Outpatient (CLI) | payer MEDICARE, SELFPAY ==
--- NOTE | 2025-03-04 08:30 | DI.US_ITS ---
APPROVED REPORT EXAM: Comprehensive 2D, Doppler, and color-flow Echocardiogram Patient Location: Out-Patient [employer] Delivery System: Simone Duckworth RDCS (AE) Indications: Systolic murmur Other Information Study Quality: Adequate Conclusion Normal left ventricular chamber size. Ejection fraction is 65%. Wall motion is normal Normal right ventricular size and function Both atria are normal in size Aortic valve is sclerotic and trileaflet. There is mild aortic stenosis. Mean gradient is 13 mmHg. There is mild aortic regurgitation Mitral annular calcification. Mild mitral regurgitation Mild tricuspid regurgitation. Estimated right ventricular systolic pressure is 45 mmHg Mildly dilated ascending aorta Wall motion Left Ventricle The left ventricle is normal size. The left ventricular systolic function is normal. The left ventric ular ejection fraction is within the normal range. There is normal left ventricular wall thickness.. There is normal LV segmental wall motion. There is no ventricular septal defect visualized. LVEF is 6 5%. Right Ventricle The right ventricle is normal size. The right ventricular systolic function is normal. Atria The left atrium size is normal. The right atrium size is normal. The interatrial septum is intact wit h no evidence for an atrial septal defect. Aortic Valve The aortic valve is sclerotic. Aortic valve is trileaflet. Mild aortic stenosis. Highest mean aortic valve gradient is 12.8 mmHg. Peak aortic valve gradient is 27.5 mmHg. Calculated AFUA by the continuit y equation is 1.5 cm2. Mild aortic regurgitation. Mitral Valve Mitral valve leaflets are thickened. Moderate mitral annular calcification. Mild mitral stenosis. Mil d mitral regurgitation. Tricuspid Valve The tricuspid valve is normal in structure. There is no tricuspid valve stenosis. Mild tricuspid regu rgitation. The RVSP is 45 mmHg. Pulmonic Valve The pulmonary valve is normal in structure. There is no pulmonic valvular stenosis. There is no pulmo sandra valvular regurgitation. Great Vessels The aortic root is normal in size. The ascending aorta is mildly dilated. Aortic arch is normal in ca liber. IVC is normal in size and collapses >50% with inspiration. Pericardium There is no pericardial effusion. 2D Dimensions IVSD d PLAX 0.98 cm F: 0.6-1.0 Ao Root d 3.28 cm F: 2.7 - 3.3 LVPW d PLAX 1.00 cm F: 0.6 - 1.0 Ao Asc Diam d 3.84 cm F: 2.3 - 3.1 LVID d PLAX 4.84 cm F: 3.8 - 5.2 LVDs 3.28 cm F: 2.2 - 3.5 LV EF Teichholz 60.2 % FS 32.12 % LV EDV (Teich) 109.5 mL LV ESV (Teich) 43.6 mL Stroke Vol Index (Teich) 35.82 M-Mode TAPSE 1.64 cm (M/F) >1.7 LV Volumes - Method of Disks (Yañez's) Single Plane 2D LV Volumes Biplane 2D LV Volumes LV EDV A4C 54.8 mL LV EDV BP 60.43 mL F: 46 - 106 LV ESV A4C 23.8 mL LV ESV BP 25.3 mL LVEF(%) A4C 56.6 % LVEF(%) BP 58.07 % F: 54 - 74 LV EDV A2C 64.7 mL LV EDV BP Index 32.84 mL/m2 F: 29 - 61 LV ESV A2C 24.6 mL SV BP LVEF(%) A2C 61.9 % SV Index LA Volume LA Length A4C 6.5 cm LA Length A2C 6.3 cm LA Area A4C s 12.42 cm2 LA Area A2C s 14.11 cm2 LA Vol A4C A-L 20.06 mL LA Vol A2C A-L 26.99 mL LA Vol Biplane A-L 23.8 mL LA Vol/BSA A4C A-L LA Vol/BSA A2C A-L LA Vol/BSA BP A-L 12.9 mL/m2 LA Vol A4C MOD 18.8 mL LA Vol A2C MOD 26.2 mL LA Vol BP MOD 22.5 mL RA Volume RA Area A4C 10.1 cm2 RA ESV A4C (A-L) 20.1mL RA Vol/BSA A4C A-L RA Length A4C 4.3 cm RA ESV A4C (MOD) 19.3mL LV Diastology MV E' medial 0.042 (>0.07 m/s) MV E Vmax 1.03 (0.4-1.3 m/s) MV E/E' MED 24.73 (<14) MV A Vmax 1.90 (0.4-1.3 m/s) MV E' lateral 0.046 (>0.1 m/s) E/A Ratio 0.5 MV E/E' LAT 22.27 (<14) MV E' Average 0.044 m/s MV E/E'(average) 23.43 Aortic Valve AoV Vmax 2.62 m/s LVOT Vmax 1.49 m/s AoV Peak Grad 54.0 mmHg LVOT Peak Grad 8.8 mmHg AoV Area (Vmax) 1.41 cm2 LVOT VTI 0.366 m AoV VTI 0.611 m LVOT Mean Grad 5.0 mmHg AoV Mean Kody. 1.63 m/s LVOT SV 91.13 mL AoV Mean Grad 12.8 mmHg LVOT Diam s 1.75 cm AoV Area (VTI) 1.49 cm2 AV Regurg Peak Gr. 27.45 mmHg Velocity Ratio 0.57 AR Decel [place] 2.3m/sec2 AR DT 1932 msec AR PHT 560 msec AR Vmax 4.49 m/s Mitral Valve MV DT 355 (160-240 msec) MV Vmax TIPS 1.84 m/s MV Mean Grad 4.7 (<2mmHg) MV VTI 0.560 m Pulmonary Valve PV Vmax 1.40 (0.5-1.5 m/s) RVOT Vmax 0.94 m/s PV Peak Grad 7.8 mmHg RVOT Peak Gr. 3.6 mmHg PV Mean Kody 0.96 m/s RVOT VTI 0.190 m PV Mean Grad 4.2 mmHg RVOT Mean Gr. 2.1 mmHg Tricuspid Valve RA Pressure 3.00 mmHg TR Vmax 3.24 m/s TR Peak Grad 41.9 mmHg RVSP (TR) 44.9 mmHg
== END 2025-03-04 01:02 ==
LOC: DI 00:42
PROVIDERS: PCP Student in an Organized Health Care Education/Training Program; Visit Provider Internal Medicine Cardiovascular Disease
DX: R01.1 Cardiac murmur, unspecified (principal); I08.3 Combined rheumatic disorders of mitral, aortic and tricuspid valves
CPT/HCPCS: 93306

== ENCOUNTER 2025-03-06 00:28 | Outpatient (CLI) | payer MEDICARE, SELFPAY ==
--- NOTE | 2025-03-06 | DI.MAMMO_ITS ---
Exam(s) MAMMO SCREENING EXAM: MAMMO SCREENING CLINICAL HISTORY: SCREENING Z12.31. TECHNIQUE: Bilateral full field digital CC and MLO mammographic images were obtained with 3D tomosyn thesis and utilizing computer aided detection (CAD). COMPARISON: Prior mammograms were reviewed. FINDINGS: There has been no significant change in the appearance and distribution of the fibroglandular tissue. Benign secretory-type and vascular calcifications are again seen in both breasts. There are no new spiculated masses nor malignant appearing microcalcification groups. There is no significant architectural distortion nor skin thickening-retraction. IMPRESSION: No radiographic evidence of malignancy. BI-RADS Category 1 - Negative Breast Density - Category B - There are scattered areas of fibroglandular density. Breast density Category C or D implies that the patient has dense breast tissue. Dense breast tissue can make it harder to find cancer on a mammogram. Dense breast tissue is also associated with an incr eased risk of breast cancer. This information about the result of the mammogram report was provided to the patient to raise their awareness. Use this report when you speak with the patient about their risks for breast cancer, which includes their family history. At that time, you may recommend additional screening tests (Ultrasoun d or MRI) as these tests may add significant information. A negative radiographic report should not delay biopsy if a dominant or clinically suspicious mass is present. Up to ten percent of cancers are not identified on mammography. A negative report may reinforce clinical impression. Adenosis and dense breasts may obscure an underlying neoplasm. False positive reports average 6 to 10%. Patient will receive a letter notifying them of these results.
== END 2025-03-06 00:48 ==
LOC: DI 00:28
PROVIDERS: PCP Student in an Organized Health Care Education/Training Program; Visit Provider Student in an Organized Health Care Education/Training Program
DX: Z12.31 Encounter for screening mammogram for malignant neoplasm of breast (principal); R92.323 Mammographic fibroglandular density, bilateral breasts
CPT/HCPCS: 77063; 77067

== ENCOUNTER 2025-03-30 02:38 | Outpatient (CLI) | payer MEDICARE, SELFPAY ==
--- NOTE | 2025-03-30 09:18 | DI.DEXA_ITS ---
Exam(s) XR DEXA BONE DENSITY W/WO YOKO EXAM: XR DEXA BONE DENSITY W/WO YOKO CLINICAL HISTORY: Asymptomatic postmenopausal state, Z78.0; h/o osteopenia of lumbar spine on TECHNIQUE: COMPARISON: No exams were available for comparison FINDINGS: Lateral Spine Image: There is a prominent thoracic kyphosis and lumbar lordosis. Left hip: Total T-Score: -1.8. This compares to -1.0 on the prior examination. Total Z-Score: 0.0 T- and Z-scores: The finding is consistent with on overall assessment of osteopenia. There is osteop orosis in the femoral neck with a T-score of -2.7. Lumbar Spine: Total T-Score: -0.2. This compares to -2.0 on the prior examination. Total Z-Score: 2.3 T- and Z-scores: Within normal limits. IMPRESSION: Note is made of osteoporosis in the left femoral neck.
== END 2025-03-30 02:58 ==
LOC: DI 02:38
PROVIDERS: PCP Student in an Organized Health Care Education/Training Program; Visit Provider Student in an Organized Health Care Education/Training Program
DX: Z78.0 Asymptomatic menopausal state (principal); M85.88 Other specified disorders of bone density and structure, other site
CPT/HCPCS: 77080

== ENCOUNTER 2025-04-06 09:03 | Outpatient (CLI) | payer MEDICARE, SELFPAY ==
[2025-04-06 10:05] LABS: Vitamin D 25 Total 49 ng/mL (30-100)
[2025-04-06 17:46] LABS: Ionized Calcium 1.14 mmol/L (1.14-1.35)
== END 2025-04-06 09:04 | disposition home or self-care (01) ==
LOC: LBO 09:04
PROVIDERS: PCP Student in an Organized Health Care Education/Training Program; Visit Provider Student in an Organized Health Care Education/Training Program
DX: M81.0 Age-related osteoporosis without current pathological fracture (principal)
CPT/HCPCS: 36415; 82306; 82330